=== PATIENT | female | born 1940 | race Caucasian/White ===

== ENCOUNTER 2018-12-01 05:40 | Day surgery (SDC) | payer MEDICARE, OTHER ==
[2018-11-28 16:37] LABS: BASOPHILS # (AUTO) 0.1 X10'3 (0-0.2); BASOPHILS % (AUTO) 0.8 % (0-1); EOSINOPHILS # (AUTO) 0.2 X10'3 (0-0.9); EOSINOPHILS % (AUTO) 2.5 % (0-6); LYMPHOCYTES # (AUTO) 2.5 X10'3 (1.1-4.8); LYMPHOCYTES % (AUTO) 34.2 % (21-51); MEAN CORPUSCULAR HEMOGLOBIN 29.6 PG (27.0-31.0); MEAN CORPUSCULAR HGB CONC 33.7 g/dL (33.0-36.5); MEAN CORPUSCULAR VOLUME 87.8 FL (78-98); MEAN PLATELET VOLUME 7.5 FL (7.4-10.4); MONOCYTES # (AUTO) 0.7 X10'3 (0-0.9); MONOCYTES % (AUTO) 8.9 % (2-12); NEUTROPHILS % (AUTO) 53.6 % (42-75); PRE OP HEMATOCRIT 38.6 % (35.0-45.0); PRE OP PLATELET COUNT 300 X10'3 (140-440); RED BLOOD COUNT 4.39 X10'6 (4.20-5.60); RED CELL DISTRIBUTION WIDTH 14.8 % (11.5-14.5)
[2018-11-28 16:51] LABS: ALBUMIN 3.4 G/DL (3.4-5.0); ALKALINE PHOSPHATASE 80 IU/L (46-116); BLOOD UREA NITROGEN 18 MG/DL (7-18); BUN/CREATININE RATIO 20.5 (6.6-38.0); CALCIUM 9.3 MG/DL (8.5-10.1); CHLORIDE 108 MMOL/L (99-107); CREATININE 0.88 MG/DL (0.40-0.90); PRE OP ALT 19 U/L (30-65); PRE OP ANION GAP 8 (8-16); PRE OP AST 16 U/L (10-37); PRE OP BILIRUB, TOTAL 0.2 MG/DL (0.0-1.0); PRE OP GLUCOSE 97 MG/DL (70-104); PRE OP POTASSIUM 3.7 MMOL/L (3.4-5.1); PRE OP SODIUM 143 MMOL/L (135-145); TOTAL CARBON DIOXIDE 27.4 MMOL/L (24-32); TOTAL PROTEIN 6.9 G/DL (6.4-8.2); eGFR 62 ML/MIN
[2018-12-01] VITALS (9 sets, daily range): BP systolic 99–113; BP diastolic 66–79
[~2018-12-01] VITALS: Ht 162.6 cm; Wt 65.8 kg
[~2018-12-01 05:40] MED LIST: OMEP20CA10 PO; SODI1TAB59 PO; VANCOMYCIN INJ 1000 MG in NORMAL SALINE 250ml IV.SOLN IV ONE; ZOLP10TA5 PO; ceFAZolin 1GM/D5W- ADD-VANTAGE 50 ML IV ONE; famotidine 20mg tablet PO ONE; ringers solution, lacted 1,000 ML IV SCH
[2018-12-01] MEDS ORDERED: LIDOcaine 1% (10mg/ml) 2ml vial ONE (05:57)
[2018-12-01] MEDS ORDERED: dexamethasone sod phosphate 10mg/ml inj ONE (06:50)
[2018-12-01] MEDS ORDERED: cloNIDine hcl/PF 100mcg/ml inj ONE (06:50)
[2018-12-01] MEDS ORDERED: sevoflurane 250ml liquid IH ONE (06:50)
[2018-12-01] MEDS ORDERED: midazolam 2 mg/2 ml injection ONE (06:51)
[2018-12-01] MEDS ORDERED: fentaNYL/PF 50MCG/1 ML 2ML syringe ONE (06:51)
[2018-12-01] MEDS ORDERED: LIDOcaine 1%/PF 5ML 10 MG/ML VIAL ONE (06:52)
[2018-12-01] MEDS ORDERED: ROPIVAcaine 0.5% (5mg/ml) 30ml vial ONE (06:52)
[2018-12-01] MEDS ORDERED: propofol inj 20 ML IV ONE (06:52)
[2018-12-01] MEDS ORDERED: rocuronium 10mg/ml inj IV ONE (07:49)
[2018-12-01] MEDS ORDERED: ondansetron/PF 4mg/2ml inj ONE (07:49)
[2018-12-01] MEDS ORDERED: BUPIVAcaine/PF 2.5mg/ml (0.25%) 10ml vial ONE (08:03)
[2018-12-01] MEDS ORDERED: morphine 4 MG/ML inj SYRINge IV PRN ×2 (08:10)
[2018-12-01] MEDS ORDERED: ringers solution, lacted 1,000 ML IV SCH (08:10)
[2018-12-01] MEDS ORDERED: proCHLORperazine 10 MG/2 ml inj IV PRN (08:10)
[2018-12-01] MEDS ORDERED: ondansetron/PF 4mg/2ml inj IV PRN (08:10)
[2018-12-01] MEDS ORDERED: meperidine/PF 25mg/ml syringe IV PRN ×3 (08:10)
--- NOTE | 2018-12-01 09:36 | NUR ---
Received from OR via , accompanied by Anesthesiologist DR OLIVEROS and report given by Anesthesiolgist. AWAKENS TO VOICE. VITALS STABLE. DRESSING DI. MERLIN PAIN. RUE IN IMMOBILIZER. RT HAND WARM AND PINK.
--- NOTE | 2018-12-01 09:54 | NUR ---
PT ARRIVED AND ASSESSED AT 0936 NOT 0636.
--- NOTE | 2018-12-01 11:06 | NUR ---
AWAKE AND ORIENTED. VITALS STABLE. DRESSING DI. MERLIN PAIN. NO MOVEMENT TO RUE. HAS SLING IN PLACE. HOME WITH FAMILY AT THIS TIME.
== END 2018-12-01 11:06 | disposition home or self-care (01) ==
LOC: PAS 05:40
PROVIDERS: ATTEND Orthopaedic Surgery
DX: S46.011A Strain of muscle(s) and tendon(s) of the rotator cuff of right shoulder, initial encounter (principal); S43.491A Other sprain of right shoulder joint, initial encounter; M24.011 Loose body in right shoulder; M19.011 Primary osteoarthritis, right shoulder; M75.41 Impingement syndrome of right shoulder; M75.21 Bicipital tendinitis, right shoulder; X58.XXXA Exposure to other specified factors, initial encounter; Y92.89 Other specified places as the place of occurrence of the external cause; Y99.8 Other external cause status; Y93.89 Activity, other specified; Z79.899 Other long term (current) drug therapy; Z98.890 Other specified postprocedural states
CPT/HCPCS: 0232T; 29819; 29823; 29824; 36415; 80053; 85025; A6253; A6449; C1713; J0690; J0735; J1100; J2001; J2250; J2405; J2704; J3010; J3370; J3490; J7120; A4565; A7000; J2795; J7030

== ENCOUNTER 2019-10-21 14:40 | Emergency (ER) | payer MEDICARE, OTHER ==
[~2019-10-21] VITALS: Ht 160 cm; Wt 63.6 kg
[~2019-10-21 14:40] MED LIST changes: -OMEP20CA10 PO; +OMEP20CA15 PO; -VANCOMYCIN INJ 1000 MG in NORMAL SALINE 250ml IV.SOLN IV ONE; -ceFAZolin 1GM/D5W- ADD-VANTAGE 50 ML IV ONE; -famotidine 20mg tablet PO ONE; -ringers solution, lacted 1,000 ML IV SCH
[2019-10-21 14:42] VITALS: BP 110/70
== END 2019-10-21 15:14 | disposition home or self-care (01) ==
LOC: ER 14:40
DX: R47.02 Dysphasia (principal); Z88.8 Allergy status to other drugs, medicaments and biological substances; Z88.5 Allergy status to narcotic agent; Z79.899 Other long term (current) drug therapy
CPT/HCPCS: 99283

== ENCOUNTER 2019-10-25 09:44 | Outpatient (CLI) | payer MEDICARE, OTHER | END 2019-10-25 23:59 | disposition home or self-care (01) | LOC: RAD 09:44 | PROVIDERS: ATTEND Otolaryngology | DX: K44.9 Diaphragmatic hernia without obstruction or gangrene (principal); R49.0 Dysphonia | CPT/HCPCS: 74220 ==

== ENCOUNTER 2019-11-30 09:26 | Outpatient (CLI) | payer MEDICARE, OTHER | END 2019-11-30 23:59 | disposition home or self-care (01) | LOC: RAD 09:26 | PROVIDERS: ATTEND Surgery | DX: K44.9 Diaphragmatic hernia without obstruction or gangrene (principal) | CPT/HCPCS: 74220 ==

== ENCOUNTER 2020-10-27 07:14 | Day surgery (SDC) | payer MEDICARE, OTHER ==
[2020-10-24 11:27] LABS: BASOPHILS # (AUTO) 0.1 X10'3 (0-0.2); BASOPHILS % (AUTO) 0.9 % (0-1); EOSINOPHILS # (AUTO) 0.2 X10'3 (0-0.9); EOSINOPHILS % (AUTO) 3.7 % (0-6); HEMATOCRIT 32.2 % (35.0-45.0); HEMOGLOBIN 10.3 g/dl (12.0-16.0); LYMPHOCYTES # (AUTO) 1.7 X10'3 (1.1-4.8); LYMPHOCYTES % (AUTO) 25.9 % (21-51); MEAN CORPUSCULAR HEMOGLOBIN 27.1 PG (27.0-31.0); MEAN CORPUSCULAR HGB CONC 32.1 g/dL (33.0-36.5); MEAN CORPUSCULAR VOLUME 84.3 FL (78-98); MEAN PLATELET VOLUME 7.7 FL (7.4-10.4); MONOCYTES # (AUTO) 0.7 X10'3 (0-0.9); NEUTROPHILS # (AUTO) 3.8 X10'3 (1.8-7.7); NEUTROPHILS % (AUTO) 58.5 % (42-75); PLATELET COUNT 303 X10'3 (140-440); RED BLOOD COUNT 3.82 X10'6 (4.20-5.60); RED CELL DISTRIBUTION WIDTH 14.6 % (11.5-14.5); WHITE BLOOD COUNT 6.5 X10'3 (4.5-11.0)
[2020-10-24 11:37] LABS: ALBUMIN 3.3 G/DL (3.4-5.0); ANION GAP 7 (8-16); BLOOD UREA NITROGEN 19 MG/DL (7-18); BUN/CREATININE RATIO 24.7 (6.6-38.0); CHLORIDE 107 MMOL/L (99-107); CREATININE 0.77 MG/DL (0.40-0.90); GLUCOSE 84 MG/DL (70-104); SODIUM 142 MMOL/L (135-145); TOTAL CARBON DIOXIDE 28.4 MMOL/L (24-32); eGFR 73 ML/MIN
[2020-10-24 11:42] LABS: PARTIAL THROMBOPLASTIN TIME 23 SECONDS (22-32)
[2020-10-27] VITALS (10 sets, daily range): BP systolic 107–127; BP diastolic 65–104
[~2020-10-27] VITALS: Ht 162.6 cm; Wt 61.3 kg
[2020-10-27] MEDS ORDERED: diphenhydrAMINE 25mg capsule PO PRN (07:40)
[2020-10-27] MEDS ORDERED: LORazepam 0.5 MG tablet PO PRN (07:40)
[2020-10-27] MEDS ORDERED: LIDOcaine/PRILOcaine 5gm cream TP ONE (07:40)
[2020-10-27] MEDS ORDERED: normal saline 1,000 ML IV SCH (07:40)
[2020-10-27] MEDS ORDERED: IPRA30SP (07:43)
[2020-10-27] MEDS ORDERED: CALC500T11 PO (07:44)
[2020-10-27] MEDS ORDERED: CETI10TA15 PO (07:44)
[2020-10-27] MEDS ORDERED: midazolam 2 mg/2 ml injection ONE (09:42)
[2020-10-27] MEDS ORDERED: verapamil 2.5 mg/ml inj IV ONE (09:42)
[2020-10-27] MEDS ORDERED: LIDOcaine 1% (10mg/ml)w/preservative injection 20ml MDV ONE (09:42)
[2020-10-27] MEDS ORDERED: fentaNYL/PF 50MCG/1 ML 2ML syringe ONE (09:42)
[2020-10-27] MEDS ORDERED: iohexol 350 MG/ML 50ML vial IV ONE (09:43)
[2020-10-27] MEDS ORDERED: heparin 1,000unit/ml 10ml vial 10 ML ONE (09:43)
[2020-10-27] MEDS ORDERED: iohexol 350MG/ML 100ml bottle IV ONE (09:43)
[2020-10-27] MEDS ORDERED: nitroGLYCERIN-Tridil 50MG/D5W 250 ML IV ONE (09:43)
[2020-10-27 10:32] LABS: ISTAT HGB ART 10.9 g/dl (12.0-16.0); ISTAT Hct ART 32 %PCV (35-48); ISTAT O2 SATURATION ARTERIAL 98 % (95-98); ISTAT SOURCE ART
[2020-10-27] MEDS ORDERED: HYDROcodone/acetaminophen 5mg/325mg tablet PO PRN (11:30)
[2020-10-27] MEDS ORDERED: HYDROcodone/acetaminophen 10/325mg tab PO PRN (11:30)
== END 2020-10-27 16:00 | disposition home or self-care (01) ==
LOC: SSTAY O 07:14
PROVIDERS: ATTEND Internal Medicine Cardiovascular Disease
DX: R06.02 Shortness of breath (principal); R53.83 Other fatigue; I35.2 Nonrheumatic aortic (valve) stenosis with insufficiency; I25.10 Atherosclerotic heart disease of native coronary artery without angina pectoris; I10 Essential (primary) hypertension; E78.49 Other hyperlipidemia; M19.90 Unspecified osteoarthritis, unspecified site; Z79.899 Other long term (current) drug therapy; Z90.710 Acquired absence of both cervix and uterus; Z88.8 Allergy status to other drugs, medicaments and biological substances; Z98.890 Other specified postprocedural states; Z96.651 Presence of right artificial knee joint; Z85.9 Personal history of malignant neoplasm, unspecified; Z83.3 Family history of diabetes mellitus; Z80.0 Family history of malignant neoplasm of digestive organs
CPT/HCPCS: 36415; 76937; 80048; 82803; 85014; 85025; 85610; 85730; 93005; 93460; 93567; 99152; 99153; C1769; C1894; J1644; J2001; J2250; J3010; J7030; Q0163; Q9967; A4620; A5120; C1751; J3490

== ENCOUNTER 2021-01-08 09:06 | Day surgery (SDC) | payer MEDICARE, OTHER ==
[2021-01-01 12:28] LABS: BASOPHILS # (AUTO) 0.1 X10'3 (0-0.2); EOSINOPHILS # (AUTO) 0.6 X10'3 (0-0.9); EOSINOPHILS % (AUTO) 8.9 % (0-6); LYMPHOCYTES # (AUTO) 1.9 X10'3 (1.1-4.8); LYMPHOCYTES % (AUTO) 29.4 % (21-51); MEAN CORPUSCULAR HEMOGLOBIN 26.1 PG (27.0-31.0); MEAN CORPUSCULAR HGB CONC 32.1 g/dL (33.0-36.5); MEAN CORPUSCULAR VOLUME 81.4 FL (78-98); MEAN PLATELET VOLUME 7.3 FL (7.4-10.4); MONOCYTES # (AUTO) 0.8 X10'3 (0-0.9); MONOCYTES % (AUTO) 12.6 % (2-12); NEUTROPHILS % (AUTO) 48.1 % (42-75); PRE OP HEMATOCRIT 32.7 % (35.0-45.0); PRE OP PLATELET COUNT 321 X10'3 (140-440); RED BLOOD COUNT 4.02 X10'6 (4.20-5.60); RED CELL DISTRIBUTION WIDTH 15.2 % (11.5-14.5)
[2021-01-01 12:31] LABS: PRE OP HEMOGLOBIN 10.5 g/dL (12.0-16.0)
[2021-01-01 12:51] LABS: ALBUMIN 3.5 G/DL (3.4-5.0); ALBUMIN/GLOBULIN RATIO 1.1 (1.1-1.5); ALKALINE PHOSPHATASE 76 IU/L (46-116); BLOOD UREA NITROGEN 20 MG/DL (7-18); BUN/CREATININE RATIO 27.4 (6.6-38.0); CALCIUM 9.1 MG/DL (8.5-10.1); CHLORIDE 107 MMOL/L (99-107); CREATININE 0.73 MG/DL (0.40-0.90); PRE OP ALT 21 U/L (30-65); PRE OP ANION GAP 8 (8-16); PRE OP AST 18 U/L (10-37); PRE OP BILIRUB, TOTAL 0.2 MG/DL (0.0-1.0); PRE OP GLUCOSE 86 MG/DL (70-104); PRE OP POTASSIUM 4.2 MMOL/L (3.4-5.1); PRE OP SODIUM 143 MMOL/L (135-145); TOTAL CARBON DIOXIDE 28.2 MMOL/L (24-32); TOTAL PROTEIN 6.7 G/DL (6.4-8.2); eGFR 77 ML/MIN
[2021-01-08] VITALS (15 sets, daily range): BP systolic 99–122; BP diastolic 44–74
[~2021-01-08] VITALS: Ht 162.6 cm; Wt 61.7 kg
[~2021-01-08 09:06] MED LIST changes: +CALC500T11 PO; -SODI1TAB59 PO; +VANCOMYCIN INJ 1000 MG in NORMAL SALINE 250ml IV.SOLN IV ONE; +cefazolin/dext.iso 2gm/100ml IV ONE; +famotidine 20mg tablet PO ONE; +ringers solution, lacted 1,000 ML IV SCH
[2021-01-08] MEDS ORDERED: hydrALAZINE 20mg/ml inj. IV PRN (10:30)
[2021-01-08] MEDS ORDERED: fentaNYL/PF 50MCG/1 ML 2ML syringe IV PRN ×2 (10:30)
[2021-01-08] MEDS ORDERED: ringers solution, lacted 1,000 ML IV SCH (10:30)
[2021-01-08] MEDS ORDERED: labetalol 20mg/4ml (5mg/ml) syringe IV PRN (10:30)
[2021-01-08] MEDS ORDERED: ondansetron/PF 4mg/2ml inj IV PRN (10:30)
[2021-01-08] MEDS ORDERED: BUPIVAcaine/PF 2.5 mg/ml (0.25%) 30ml vial ONE (11:19)
[2021-01-08] MEDS ORDERED: LIDOcaine 0.5% (5mg/ml) 50ml vial ONE (11:22)
[2021-01-08] MEDS ORDERED: MIDAZolam 1 MG/ML 5ML VIAL ONE (11:29)
[2021-01-08] MEDS ORDERED: methylPREDNISolone sod succ 125mg/2ml vial ONE (11:44)
[2021-01-08] MEDS ORDERED: fentaNYL/PF 50MCG/1 ML 2ML syringe ONE (12:02)
--- NOTE | 2021-01-08 12:14 | NUR ---
Received from OR via [facility] IN STABLE CONDITION, accompanied by Anesthesiologist DR. RDZ and FLAG CAR DRIVER report given by Anesthesiolgist. Addendum: 01/08/21 at 1238 by Meghan Quinteros RN Amended: Links added.
--- NOTE | 2021-01-08 14:34 | NUR ---
PATIENT DISCHARGED HOME IN STABLE CONDITION AFTER WRITTEN AND VERBAL DISCHARGE INSTRUCTIONS GIVEN. PATIENT GAVE A VERBAL UNDERSTANDING OF INSTRUCTIONS GIVEN. PATIENT LEFT FACILITY IN WHEELCHAIR WITH RN. Addendum: 01/08/21 at 1456 by Meghan Quinteros RN Amended: Links added.
== END 2021-01-08 14:34 | disposition home or self-care (01) ==
LOC: PAS 09:06
PROVIDERS: ATTEND Orthopaedic Surgery
DX: G56.02 Carpal tunnel syndrome, left upper limb (principal); G56.22 Lesion of ulnar nerve, left upper limb; K21.9 Gastro-esophageal reflux disease without esophagitis; I35.0 Nonrheumatic aortic (valve) stenosis; G89.4 Chronic pain syndrome; E78.5 Hyperlipidemia, unspecified; M19.011 Primary osteoarthritis, right shoulder; G62.9 Polyneuropathy, unspecified; Z86.14 Personal history of Methicillin resistant Staphylococcus aureus infection; Z85.41 Personal history of malignant neoplasm of cervix uteri; Z88.8 Allergy status to other drugs, medicaments and biological substances; Z88.5 Allergy status to narcotic agent; Z79.899 Other long term (current) drug therapy; Z98.890 Other specified postprocedural states; Z86.73 Personal history of transient ischemic attack (TIA), and cerebral infarction without residual deficits; Z96.653 Presence of artificial knee joint, bilateral; Z80.9 Family history of malignant neoplasm, unspecified
CPT/HCPCS: 36415; 64719; 64721; 80053; 82948; 85025; A6222; J2001; J2250; J2930; J3010; J3370; J3490; A4215; A4618; A6449; A6455; A7000; J7120

== ENCOUNTER 2023-02-21 07:35 | Day surgery (SDC) | payer MEDICARE, OTHER ==
[2023-02-18 15:33] LABS: BASOPHILS # (AUTO) 0.1 X10'3 (0-0.2); BASOPHILS % (AUTO) 0.8 % (0-1); EOSINOPHILS # (AUTO) 0.2 X10'3 (0-0.9); EOSINOPHILS % (AUTO) 2.6 % (0-6); LYMPHOCYTES # (AUTO) 1.6 X10'3 (1.1-4.8); LYMPHOCYTES % (AUTO) 21.1 % (21-51); MEAN CORPUSCULAR HEMOGLOBIN 22.3 PG (27.0-31.0); MEAN CORPUSCULAR HGB CONC 30.5 g/dL (33.0-36.5); MEAN PLATELET VOLUME 7.2 FL (7.4-10.4); MONOCYTES # (AUTO) 0.8 X10'3 (0-0.9); MONOCYTES % (AUTO) 10.8 % (2-12); NEUTROPHILS # (AUTO) 4.9 X10'3 (1.8-7.7); NEUTROPHILS % (AUTO) 64.7 % (42-75); PRE OP HEMATOCRIT 27.6 % (35.0-45.0); PRE OP PLATELET COUNT 344 X10'3 (140-440); RED BLOOD COUNT 3.78 X10'6 (4.20-5.60); RED CELL DISTRIBUTION WIDTH 17.7 % (11.5-14.5)
[2023-02-18 15:34] LABS: PRE OP HEMOGLOBIN 8.4 g/dL (12.0-16.0)
[2023-02-18 15:43] LABS: ALBUMIN 3.6 G/DL (3.4-5.0); ALBUMIN/GLOBULIN RATIO 1.1 (1.1-1.5); ALKALINE PHOSPHATASE 91 IU/L (46-116); BLOOD UREA NITROGEN 19 MG/DL (7-18); BUN/CREATININE RATIO 21.3 (10.0-20.0); CALCIUM 8.9 MG/DL (8.5-10.1); CHLORIDE 106 MMOL/L (99-107); CREATININE 0.89 MG/DL (0.40-0.90); PRE OP ALT 14 U/L (30-65); PRE OP ANION GAP 10 (8-16); PRE OP AST 16 U/L (10-37); PRE OP BILIRUB, TOTAL 0.2 MG/DL (0.0-1.0); PRE OP GLUCOSE 101 MG/DL (70-104); PRE OP POTASSIUM 3.8 MMOL/L (3.4-5.1); PRE OP SODIUM 140 MMOL/L (135-145); TOTAL CARBON DIOXIDE 24.1 MMOL/L (24-32); TOTAL PROTEIN 6.9 G/DL (6.4-8.2); eGFR 61 ML/MIN
[~2023-02-21] VITALS: Ht 162.6 cm; Wt 60.4 kg
[2023-02-21] VITALS (8 sets, daily range): BP systolic 111–122; BP diastolic 61–97
[~2023-02-21 07:35] MED LIST changes: +ACET-2119 PO; +IBUP1TAB11 PO; +IPRA30SP NS; +TUMERIC PO; -VANCOMYCIN INJ 1000 MG in NORMAL SALINE 250ml IV.SOLN IV ONE; +[UNRECOGNIZED DRUG - CODE] PO; +[UNRECOGNIZED DRUG - OTHER] PO; +cefazolin 2gm/D5W 100mL 100 ML IV ONE; -cefazolin/dext.iso 2gm/100ml IV ONE
[2023-02-21] MEDS ORDERED: BUPIVAcaine/PF 2.5mg/ml (0.25%) 10ml vial ONE (10:25)
[2023-02-21] MEDS ORDERED: midazolam 1 mg/ML 2ml injection ONE (10:43)
[2023-02-21] MEDS ORDERED: fentaNYL/PF 50MCG/1 ML 2ML syringe ONE (10:43)
--- NOTE | 2023-02-21 11:19 | NUR ---
Received from OR via [facility], accompanied by Anesthesiologist DR VALENCIA and report given by Anesthesiologist. PT IS AWAKE AND ANSWERING QUESTIONS APPROPRIATELY. PT PLACED ON BEDSIDE MONITOR. VSS. PT IS RECEIVING RA AND TOLERATING WELL WITH O2 SAT > 95%. PT HAS 20G PIV TO LEFT LOW FA WITH LR INFUSING ORDERED. PT HAS DRSG TO RT HAND THAT IS CDI. ICE PACK PLACED. PT DENIES PAIN AT THIS TIME. WILL CONTINUE TO ASSESSES.
--- NOTE | 2023-02-21 12:33 | NUR ---
PT HAS MET D/C CRITERIA. IV D/C'D. VSS. DRESSING C/D/I. ICE INTACT. PT STILL HAS TINGLING TO RIGHT HAND WHICH IS TO BE EXPECTED AND MD AWARE. I HAVE REVIEWED D/C INSTRUCTIONS WITH PATIENT AND SHE HAS VERBALIZED UNDERSTANDING OF INSTRUCTIONS. PATIENT D/C HOME WITH ALL BELONGINGS
== END 2023-02-21 12:29 | disposition home or self-care (01) ==
LOC: PAS 07:35
PROVIDERS: ATTEND Orthopaedic Surgery Hand Surgery
DX: G56.01 Carpal tunnel syndrome, right upper limb (principal); I35.0 Nonrheumatic aortic (valve) stenosis; D64.9 Anemia, unspecified; K21.9 Gastro-esophageal reflux disease without esophagitis; E78.5 Hyperlipidemia, unspecified; G89.4 Chronic pain syndrome; G62.9 Polyneuropathy, unspecified; M19.011 Primary osteoarthritis, right shoulder; Z85.41 Personal history of malignant neoplasm of cervix uteri; Z85.42 Personal history of malignant neoplasm of other parts of uterus; Z98.890 Other specified postprocedural states; Z96.611 Presence of right artificial shoulder joint; Z88.8 Allergy status to other drugs, medicaments and biological substances; Z88.5 Allergy status to narcotic agent; Z96.653 Presence of artificial knee joint, bilateral
CPT/HCPCS: 36415; 64721; 80053; 82948; 85025; 93005; J0690; J2250; J3010; J3490; J7030; J7120; Z7506; Z7512; A4215; A6449

== ENCOUNTER 2023-04-15 09:31 | Outpatient (CLI) | payer MEDICARE, OTHER ==
[~2023-04-15 09:31] MED LIST changes: -cefazolin 2gm/D5W 100mL 100 ML IV ONE; -famotidine 20mg tablet PO ONE; -ringers solution, lacted 1,000 ML IV SCH
[2023-04-15 10:09] LABS: BASOPHILS # (AUTO) 0.1 X10'3 (0-0.2); BASOPHILS % (AUTO) 0.8 % (0-1); EOSINOPHILS # (AUTO) 0.3 X10'3 (0-0.9); HEMATOCRIT 35.6 % (35.0-45.0); HEMOGLOBIN 11.4 g/dl (12.0-16.0); LYMPHOCYTES # (AUTO) 1.7 X10'3 (1.1-4.8); LYMPHOCYTES % (AUTO) 26.4 % (21-51); MEAN CORPUSCULAR HEMOGLOBIN 26.6 PG (27.0-31.0); MEAN CORPUSCULAR VOLUME 83.1 FL (78-98); MEAN PLATELET VOLUME 7.3 FL (7.4-10.4); MONOCYTES # (AUTO) 0.6 X10'3 (0-0.9); MONOCYTES % (AUTO) 9.4 % (2-12); NEUTROPHILS # (AUTO) 3.9 X10'3 (1.8-7.7); NEUTROPHILS % (AUTO) 59.4 % (42-75); PLATELET COUNT 284 X10'3 (140-440); RED BLOOD COUNT 4.28 X10'6 (4.20-5.60); RED CELL DISTRIBUTION WIDTH 25.7 % (11.5-14.5); WHITE BLOOD COUNT 6.6 X10'3 (4.5-11.0)
[2023-04-15 10:22] LABS: APTT 24 SECONDS (22-32); INR 0.9 INR; PROTHROMBIN TIME 10.2 SECONDS (9.0-12.0)
[2023-04-15 10:24] LABS: ALANINE AMINOTRANSFERASE 16 U/L (12-78); ALBUMIN 3.8 G/DL (3.4-5.0); ALBUMIN/GLOBULIN RATIO 1.3 (1.1-1.5); ALKALINE PHOSPHATASE 62 IU/L (46-116); ANION GAP 9 (8-16); ASPARTATE AMINO TRANSFERASE 17 U/L (10-37); BILIRUBIN,TOTAL 0.4 MG/DL (0.1-1.0); BLOOD UREA NITROGEN 19 MG/DL (7-18); BUN/CREATININE RATIO 22.1 (10.0-20.0); CALCIUM 9.2 MG/DL (8.5-10.1); CHLORIDE 106 MMOL/L (99-107); CREATININE 0.86 MG/DL (0.40-0.90); GLUCOSE 99 MG/DL (70-104); POTASSIUM 4.2 MMOL/L (3.5-5.1); SODIUM 141 MMOL/L (135-145); TOTAL CARBON DIOXIDE 25.7 MMOL/L (24-32); TOTAL PROTEIN 6.8 G/DL (6.4-8.2); eGFR 63 ML/MIN
[2023-04-15 10:32] LABS: PRO BRAIN NATRIURETIC PEPTIDE 202 PG/ML (0-450)
[2023-04-15] MEDS ORDERED: IODIXANOL 320 MG/ML INFUS..BTL 100ML IV ONE (10:50)
[2023-04-15 11:00] LABS: ANISOCYTOSIS 3+; PLATELET ESTIMATE NORMAL
== END 2023-04-15 23:59 | disposition home or self-care (01) ==
LOC: RAD 09:31
PROVIDERS: ATTEND Internal Medicine Cardiovascular Disease
DX: K57.30 Diverticulosis of large intestine without perforation or abscess without bleeding (principal); I35.0 Nonrheumatic aortic (valve) stenosis; R06.02 Shortness of breath; I65.23 Occlusion and stenosis of bilateral carotid arteries; I25.10 Atherosclerotic heart disease of native coronary artery without angina pectoris; K44.9 Diaphragmatic hernia without obstruction or gangrene; K22.89 Other specified disease of esophagus; Z96.611 Presence of right artificial shoulder joint
CPT/HCPCS: 36415; 71046; 71275; 74174; 75572; 80053; 83880; 85008; 85025; 85610; 85730; 93880; 94010; 94727; 94729; J3490; Q9967; 76377

== ENCOUNTER 2023-05-26 08:38 | Inpatient (IN) | payer MEDICARE, OTHER ==
[2023-05-23 11:05] LABS: BILIRUBIN,URINE NEGATIVE (Neg); CLARITY,URINE CLEAR (Clear); COLOR,URINE YELLOW (Yellow); GLUCOSE, URINE NEGATIVE (Neg); KETONES,URINE TRACE mg/dl (Neg); LEUKOCYTE ESTERASE ,URINE NEGATIVE (Neg); NITRITES, URINE NEGATIVE (Neg); OCCULT BLOOD,URINE SMALL (Neg); PROTEIN,URINE NEGATIVE (Neg); UROBILINOGEN,URINE 0.2 E.U/dL (0.2-1.0)
[2023-05-23 11:07] LABS: BASOPHILS # (AUTO) 0.1 X10'3 (0-0.2); BASOPHILS % (AUTO) 0.6 % (0-1); EOSINOPHILS # (AUTO) 0.3 X10'3 (0-0.9); EOSINOPHILS % (AUTO) 3.1 % (0-6); LYMPHOCYTES # (AUTO) 1.3 X10'3 (1.1-4.8); LYMPHOCYTES % (AUTO) 16.6 % (21-51); MEAN CORPUSCULAR HEMOGLOBIN 28.7 PG (27.0-31.0); MEAN CORPUSCULAR HGB CONC 32.2 g/dL (33.0-36.5); MEAN CORPUSCULAR VOLUME 89.1 FL (78-98); MEAN PLATELET VOLUME 7.8 FL (7.4-10.4); MONOCYTES # (AUTO) 0.5 X10'3 (0-0.9); MONOCYTES % (AUTO) 6.7 % (2-12); NEUTROPHILS # (AUTO) 5.9 X10'3 (1.8-7.7); PRE OP HEMATOCRIT 40.7 % (35.0-45.0); PRE OP HEMOGLOBIN 13.1 g/dL (12.0-16.0); PRE OP PLATELET COUNT 290 X10'3 (140-440); RED BLOOD COUNT 4.57 X10'6 (4.20-5.60); RED CELL DISTRIBUTION WIDTH 20.1 % (11.5-14.5)
[2023-05-23 11:09] LABS: PRE OP PROTIME 9.8 SECONDS (9.0-12.0)
[2023-05-23 11:16] LABS: UA COLLECTION TYPE CLN CATCH MIDSTREAM
[2023-05-23 11:18] LABS: MUCUS STRANDS MODERATE /LPF (Neg)
[2023-05-23 11:18] LABS: ALBUMIN 3.6 G/DL (3.4-5.0); ALBUMIN/GLOBULIN RATIO 0.9 (1.1-1.5); ALKALINE PHOSPHATASE 89 IU/L (46-116); BLOOD UREA NITROGEN 18 MG/DL (7-18); BUN/CREATININE RATIO 19.1 (10.0-20.0); CALCIUM 9.9 MG/DL (8.5-10.1); CHLORIDE 104 MMOL/L (99-107); CREATININE 0.94 MG/DL (0.40-0.90); PRE OP ALT 20 U/L (30-65); PRE OP ANION GAP 10 (8-16); PRE OP AST 22 U/L (10-37); PRE OP BILIRUB, TOTAL 0.2 MG/DL (0.0-1.0); PRE OP GLUCOSE 102 MG/DL (70-104); PRE OP POTASSIUM 3.7 MMOL/L (3.4-5.1); PRE OP SODIUM 140 MMOL/L (135-145); PRO BRAIN NATRIURETIC PEPTIDE 169 PG/ML (0-450); TOTAL CARBON DIOXIDE 25.8 MMOL/L (24-32); TOTAL PROTEIN 7.4 G/DL (6.4-8.2); eGFR 57 ML/MIN
[2023-05-23 11:19] LABS: BACTERIA,URINE FEW /HPF (Neg); SQUAMOUS EPITHELIAL CELL,UR FEW /LPF (FEW); WBC,URINE 0-4 /HPF (0-4)
[2023-05-23 11:22] LABS: PRE OP INR 0.9 INR
[2023-05-23 12:48] LABS: ANISOCYTOSIS 3+; ELLIPTOCYTES FEW; PLATELET ESTIMATE NORMAL
[2023-05-26] VITALS (29 sets, daily range): BP systolic 82–139; BP diastolic 42–119; PULSE 55–88; RESP 13–23; TEMP 97.8–98.3; O2SAT 92–100
[~2023-05-26] VITALS: Ht 162.6 cm; Wt 62.6 kg
[~2023-05-26 08:38] MED LIST changes: +aspirin 325mg tablet PO ONE; +cefazolin/dext.iso 2gm/100ml IVPB IV ONE; +ondansetron/PF 4mg/2ml inj IV PRN; +phenylephrine inj 50 MG in normal saline 250ml IV solN IV SCH; +protamine sulfate 10mg/ml inj. ONE; +ringers solution, lacted 1,000 ML IV SCH; +vancomycin/NS 1 GM ADD-VANTAGE 250 ML IV ONE
[2023-05-26] MEDS ORDERED: morphine 2 MG/ML inj. syringe IV PRN (08:55)
[2023-05-26] MEDS ORDERED: ringers solution, lacted 1,000 ML IV SCH (08:55)
[2023-05-26] MEDS ORDERED: hydrALAZINE 20mg/ml inj. IV PRN ×2 (08:55→12:20)
[2023-05-26] MEDS ORDERED: ondansetron/PF 4mg/2ml inj IV PRN ×2 (08:55→12:20)
[2023-05-26] MEDS ORDERED: morphine 4 MG/ML inj SYRINge IV PRN (08:55)
[2023-05-26] MEDS ORDERED: LIDOcaine 1% (10mg/ml) 2ml vial ONE (10:16)
[2023-05-26] MEDS ORDERED: LIDOcaine 1% 30ml preserv. free vial ONE (10:49)
[2023-05-26] MEDS ORDERED: heparin 1,000 UNITS/NS 500ml 1,500 ML ONE (10:49)
[2023-05-26] MEDS ORDERED: iohexol 350MG/ML 100ml bottle IV ONE (10:49)
[2023-05-26] MEDS ORDERED: dexamethasone sod phosphate 10mg/ml inj ONE (10:53)
[2023-05-26] MEDS ORDERED: sevoflurane 250ml liquid IH ONE (10:53)
[2023-05-26] MEDS ORDERED: fentaNYL/PF 50MCG/1 ML 2ML syringe ONE (11:01)
[2023-05-26] MEDS ORDERED: midazolam 1 mg/ML 2ml injection ONE (11:02)
[2023-05-26] MEDS ORDERED: LIDOcaine 2% (20mg/ml) 5ml vial ONE (11:07)
[2023-05-26] MEDS ORDERED: ondansetron/PF 4mg/2ml inj ONE (11:07)
[2023-05-26] MEDS ORDERED: propofol inj 20 ML IV ONE (11:07)
[2023-05-26] MEDS ORDERED: heparin 1,000unit/ml 10ml vial 10 ML ONE (11:08)
[2023-05-26] MEDS ORDERED: meperidine/PF 25mg/ml syringe IV PRN ×2 (11:30)
[2023-05-26] MEDS ORDERED: acetaminophen 1,000mg/100ml IV 100 ML IV ONE (11:34)
[2023-05-26] MEDS ORDERED: labetalol 20mg/4ml (5mg/ml) syringe IV ONE (12:02)
[2023-05-26] MEDS ORDERED: [UNRECOGNIZED DRUG - OTHER] PO PRN (12:10)
[2023-05-26] MEDS ORDERED: acetaminophen 325mg tablet PO PRN ×2 (12:10→12:20)
[2023-05-26] MEDS ORDERED: DIPHENHYDRAMINE PO PRN (12:10)
[2023-05-26] MEDS ORDERED: IBUPROFEN PO PRN (12:10)
[2023-05-26] MEDS ORDERED: magnesium 2GM in 50ml NS 50 ML IV PRN (12:20)
[2023-05-26] MEDS ORDERED: magnesium 4gm in 100ml NS 100 ML IV PRN (12:20)
[2023-05-26] MEDS ORDERED: proCHLORperazine 10 MG/2 ml inj IV PRN (12:20)
[2023-05-26] MEDS ORDERED: potassium Cl 40MEQ/270ML bag 250 ML IV PRN (12:20)
[2023-05-26] MEDS: normal saline 1000ml 1,000 ML IV SCH ×2 (12:20→22:20)
[2023-05-26] MEDS ORDERED: labetalol 20mg/4ml (5mg/ml) syringe IV PRN (12:20)
[2023-05-26] MEDS ORDERED: potassium Cl 40MEQ/1/2NS 520ml 520 ML IV PRN (12:20)
[2023-05-26] MEDS ORDERED: potassium Cl 20 mEq SR tablet PO PRN (12:20)
[2023-05-26] MEDS ORDERED: pantoprazole 40mg Tablet.DR PO PRN (12:20)
[2023-05-26] MEDS ORDERED: docusate sod 100mg capsule PO PRN (12:20)
[2023-05-26] MEDS ORDERED: diphenhydrAMINE 25mg capsule PO PRN (12:20)
[2023-05-26] MEDS ORDERED: potassium Cl 20mEq/100mL bag 100 ML IV PRN (12:20)
[2023-05-26] MEDS ORDERED: ALPRAZolam 0.25mg tablet PO PRN (12:20)
[2023-05-26] MEDS ORDERED: potassium CL 10mEq/100ml bag 100 ML IV PRN (12:20)
[2023-05-26] MEDS ORDERED: calcium carbonate 500mg chew tablet PO PRN (12:25)
[2023-05-26] MEDS: nitroPRUSSIDE (NIPRIDE) (200MCG/ML) 100ML Drip IV SCH (13:18)
--- NOTE | 2023-05-26 13:19 | NUR ---
Received from OR via bed, accompanied by Anesthesiologist shiela and report given by Anesthesiolgist and phlebotomy lab assistant RN. Pt sleepy, responding appropriately, KIRIT. Bilateral groin checked with parking enforcement specialist, ANDRADE Duque, dressings CDI no hematoma bilaterally. DP pulses palpable, feet cool to touch, cap refill <3. On 6L face mask. No c/o pain or discomfort. Addendum: 05/26/23 at 1325 by Franci Carlson RN Amended: Links added.
--- NOTE | 2023-05-26 15:00 | NUR ---
Removed left radial arterial line, no hematoma present, gauze and coban wrap applied.
--- NOTE | 2023-05-26 15:26 | NUR ---
Pt transferred on bed with side rails up x3. All belongings with patient and family notified of transfer. Report given to ANDRADE Malik. Bilateral groin checked at bedside with receiving nurse, no hematoma, dressings CDI. Bilateral DP pulse palpable.
[2023-05-26] MEDS: ceFAZolin 1GM/D5W- ADD-VANTAGE 50 ML IV SCH (16:00)
[2023-05-26] MEDS: sod chloride 0.9% 10ml flush syringe IV SCH (16:00)
--- NOTE | 2023-05-26 18:00 | NUR ---
Alert and Oriented to person place and time. + pulse in lower extremities, groin site Left and right clean dry dressing in place no hematoma and no bleeding, VS stable. Heart: Normal Rate and Rhythm.
[2023-05-26] MEDS ORDERED: VIT D3 PO SCH (20:00)
[2023-05-26] MEDS: ipratropium 0.03% 30ML nasal spray NS SCH (20:00)
[2023-05-26] MEDS ORDERED: CALCIUM PHOSPHATE TRIB PO SCH (20:00)
[2023-05-26] MEDS ORDERED: non-formulary drug ([Tumeric] 1 TAB) PO SCH (20:00)
[2023-05-26] MEDS ORDERED: zolpidem 5mg tablet PO SCH (21:00)
[2023-05-26] MEDS: vancomycin/NS 1 GM ADD-VANTAGE 250 ML IV SCH (21:20)
[2023-05-27] MEDS: ceFAZolin 1GM/D5W- ADD-VANTAGE 50 ML IV SCH ×2 (00:16→08:04)
[2023-05-27] MEDS: sod chloride 0.9% 10ml flush syringe IV SCH (00:17)
[2023-05-27] MEDS: nitroPRUSSIDE (NIPRIDE) (200MCG/ML) 100ML Drip IV SCH (00:18)
[2023-05-27 00:30] VITALS: BP 95/48; PULSE 87; RESP 16; O2SAT 91
[2023-05-27 02:00] VITALS: BP 96/50; PULSE 67; RESP 16; TEMP 98.2; O2SAT 96
[2023-05-27 04:30] VITALS: BP 93/47; PULSE 66; RESP 15; O2SAT 93
[2023-05-27] MEDS ORDERED: ringers solution, lacted 1,000 ML IV SCH (05:00)
[2023-05-27] MEDS ORDERED: famotidine 20mg tablet PO ONE (05:30)
[2023-05-27 06:00] VITALS: BP 87/42; PULSE 62; RESP 16; TEMP 97.8; O2SAT 96
[2023-05-27 06:38] LABS: BASOPHILS # (AUTO) 0.1 X10'3 (0-0.2); BASOPHILS % (AUTO) 0.3 % (0-1); EOSINOPHILS % (AUTO) 0.1 % (0-6); HEMATOCRIT 35.1 % (35.0-45.0); HEMOGLOBIN 11.2 g/dl (12.0-16.0); LYMPHOCYTES # (AUTO) 1.5 X10'3 (1.1-4.8); LYMPHOCYTES % (AUTO) 10.2 % (21-51); MEAN CORPUSCULAR HEMOGLOBIN 28.3 PG (27.0-31.0); MEAN CORPUSCULAR HGB CONC 31.9 g/dL (33.0-36.5); MEAN CORPUSCULAR VOLUME 88.8 FL (78-98); MEAN PLATELET VOLUME 7.3 FL (7.4-10.4); MONOCYTES # (AUTO) 1.4 X10'3 (0-0.9); MONOCYTES % (AUTO) 9.5 % (2-12); NEUTROPHILS # (AUTO) 11.9 X10'3 (1.8-7.7); NEUTROPHILS % (AUTO) 79.9 % (42-75); PLATELET COUNT 239 X10'3 (140-440); RED BLOOD COUNT 3.95 X10'6 (4.20-5.60); RED CELL DISTRIBUTION WIDTH 18.8 % (11.5-14.5); WHITE BLOOD COUNT 14.9 X10'3 (4.5-11.0)
--- NOTE | 2023-05-27 06:43 | NUR ---
Patient in room PCU 3012. I have received report from ANDRADE MORGAN, and had the opportunity to ask questions and assume patient care.
[2023-05-27 07:00] LABS: ANISOCYTOSIS 2+; ELLIPTOCYTES FEW; PLATELET ESTIMATE NORMAL
[2023-05-27 07:16] LABS: ALANINE AMINOTRANSFERASE 13 U/L (12-78); ALKALINE PHOSPHATASE 66 IU/L (46-116); ANION GAP 9 (8-16); ASPARTATE AMINO TRANSFERASE 24 U/L (10-37); BILIRUBIN,TOTAL 0.3 MG/DL (0.1-1.0); BLOOD UREA NITROGEN 14 MG/DL (7-18); BUN/CREATININE RATIO 15.7 (10.0-20.0); CALCIUM 8.6 MG/DL (8.5-10.1); CHLORIDE 107 MMOL/L (99-107); CREATININE 0.89 MG/DL (0.40-0.90); GLUCOSE 97 MG/DL (70-104); MAGNESIUM 1.8 MG/DL (1.5-2.4); POTASSIUM 3.9 MMOL/L (3.5-5.1); PRO BRAIN NATRIURETIC PEPTIDE 545 PG/ML (0-450); SODIUM 138 MMOL/L (135-145); TOTAL CARBON DIOXIDE 21.7 MMOL/L (24-32); eCRCL 44 ML/MIN; eGFR 61 ML/MIN
[2023-05-27] MEDS: ipratropium 0.03% 30ML nasal spray NS SCH (08:00)
[2023-05-27] MEDS ORDERED: aspirin 81mg tab.chew PO SCH (08:30)
[2023-05-27] MEDS: vancomycin/NS 1 GM ADD-VANTAGE 250 ML IV SCH (09:12)
[2023-05-27] MEDS ORDERED: ASPI81TA53 PO (09:20)
[2023-05-27 10:27] VITALS: RESP 16; O2SAT 96
[2023-05-27 11:00] VITALS: BP 85/42; PULSE 64; RESP 16; TEMP 97.6; O2SAT 97
--- NOTE | 2023-05-27 12:51 | NUR ---
PT STABLE FOR DISCHARGE PER MD. DISCHARGE AND FOLLOW UP INSTRUCTIONS REVIEWED AND APPROPRIATE PAPERWORK SIGNED. PIV REMOVED WITH TIP INTACT. TELE BOX REMOVED. BELONGINGS GATHERED AND RETURNED TO PT. PT WAS TRANSPORTED TO \PRIVATE VEHICLE BY HOSPITAL STAFF. PT WAS DISCHARGED TO HOME.
== END 2023-05-27 12:43 | disposition home or self-care (01) | DRG 266 ==
LOC: UNDOADMIN 08:38 → PAS IN 08:38 → EDSTATUS 10:30 → PCU 3S 15:34
PROVIDERS: ADMIT Internal Medicine Cardiovascular Disease; ATTEND Internal Medicine Cardiovascular Disease
PROC: 03HY32Z Insertion of Monitoring Device into Upper Artery, Percutaneous Approach (ICD-10-PCS; 2023-05-26)
PROC: B41G1ZZ Fluoroscopy of Left Lower Extremity Arteries using Low Osmolar Contrast (ICD-10-PCS; 2023-05-26)
PROC: B41F1ZZ Fluoroscopy of Right Lower Extremity Arteries using Low Osmolar Contrast (ICD-10-PCS; 2023-05-26)
PROC: 02RF38Z Replacement of Aortic Valve with Zooplastic Tissue, Percutaneous Approach (ICD-10-PCS; principal; 2023-05-26 10:53)
DX: I35.0 Nonrheumatic aortic (valve) stenosis (principal); Z00.6 Encounter for examination for normal comparison and control in clinical research program; I50.33 Acute on chronic diastolic (congestive) heart failure; E78.5 Hyperlipidemia, unspecified; I25.10 Atherosclerotic heart disease of native coronary artery without angina pectoris; Z85.42 Personal history of malignant neoplasm of other parts of uterus
CPT/HCPCS: 33361; 36415; 71045; 71046; 76937; 80053; 81001; 82948; 83735; 83880; 85008; 85025; 85347; 85610; 85730; 86885; 86900; 86901; 86920; 87081; 93005; 93308; A4618; A4620; A6258; A6449; C1756; C1760; C1769; C1894; G0378; J0131; J0690; J1100; J1644; J2250; J2370; J2405; J2704; J2720; J3010; J3370; J3490; J7030; J7040; J7050; J7120; Q9967

== ENCOUNTER → 2023-11-18 | Outpatient (CLI) | payer MEDICARE, OTHER ==
[~2023-11-18] VITALS: Ht 162.6 cm; Wt 64.0 kg
[2023-11-18] VITALS (7 sets, daily range): BP systolic 97–109; BP diastolic 55–71; PULSE 63–99; RESP 18; O2SAT 100
[~2023-11-18] MED LIST changes: +ASPI81TA53 PO; +aminophylline 250mg/10ml inj. IV PRN; -aspirin 325mg tablet PO ONE; -cefazolin/dext.iso 2gm/100ml IVPB IV ONE; +nitroGLYCERIN 0.4mg SUBLingual tab SL PRN; +normal saline 500ml IV soln 500 ML IV ONE; -ondansetron/PF 4mg/2ml inj IV PRN; -phenylephrine inj 50 MG in normal saline 250ml IV solN IV SCH; -protamine sulfate 10mg/ml inj. ONE; -ringers solution, lacted 1,000 ML IV SCH; -vancomycin/NS 1 GM ADD-VANTAGE 250 ML IV ONE
[2023-11-18] MEDS: regadenoson 0.4mg/5ml syringe IV ONE (11:00)
== END | disposition home or self-care (01) ==
LOC: RAD 09:23
PROVIDERS: ATTEND Internal Medicine Cardiovascular Disease
DX: I25.10 Atherosclerotic heart disease of native coronary artery without angina pectoris (principal); R06.02 Shortness of breath
CPT/HCPCS: 78452; A9500; J2785; J7040; 93017

== ENCOUNTER → 2024-05-24 | Outpatient (CLI) | payer MEDICARE, OTHER ==
[~2024-05-24] MED LIST changes: -aminophylline 250mg/10ml inj. IV PRN; -nitroGLYCERIN 0.4mg SUBLingual tab SL PRN; -normal saline 500ml IV soln 500 ML IV ONE
== END | disposition home or self-care (01) ==
LOC: TAVR 13:30
PROVIDERS: ATTEND Internal Medicine Cardiovascular Disease
DX: Z48.812 Encounter for surgical aftercare following surgery on the circulatory system (principal); Z95.2 Presence of prosthetic heart valve

== ENCOUNTER 2025-02-24 13:30 | Inpatient (IN) | payer MEDICARE, OTHER ==
[~2025-02-24] VITALS: Ht 165.1 cm; Wt 61.4 kg
--- NOTE | 2025-02-24 13:56 | ELECTROCARDIOGRAPH REPORT ---
[facility] Test Date: 2025-02-24 Test Time: 13:41:33 Pat Name: SAM TABARES Department: EMERGENCY ROOM Room: Gender: F Tipple Repairer: MELISSA : 1940 Requested By: CHRIS MALDONADO Order Number: [id number] Reading MD: Measurements Intervals [place] Rate: 115 P: 59 WI: 112 QRS: 29 QRSD: 79 T: 91 QT: 334 QTc: 462 Interpretive Statements Sinus tachycardia Anterior infarct, old Nonspecific repol abnormality, lateral leads Artifact in lead(s) I,III,aVR,aVL,aVF and baseline wander in lead(s) I,III,aVR,aVL,aVF,V1,V5 Please click the below link to view image of tracing.
--- NOTE | 2025-02-24 14:00 | Physician Documentation ---
History of Present Illness General Chief Complaint: Mechanical Fall Stated Complaint: FALL Time Seen by MD: 13:44 Primary Medical Doctor: Dr. Pierre History of Present Illness Initial Comments The patient is an 84-year-old female with a history of aortic stenosis status post TAVR who lives by herself. Her neighbor saw her at baseline about 3:00 a.m. in the afternoon yesterday. Today, he went to check on her and when there is no answer at her door he entered her house and found her on the floor. There were several areas of vomitus in different parts of the floor. He helped her to his car. She was able to walk only with a lot of support. When I interviewed her she was able to tell me her full name and she knew where she was. She was disoriented to the year. Medication Reconciliation Allergies: Coded Allergies: gabapentin (Verified Adverse Reaction, Mild, ITCHING, PRICKLY SENSATION, 02/18/23) hydrocodone (Verified Adverse Reaction, Unknown, MAUSEA, ITCH, 02/18/23) morphine (Verified Adverse Reaction, Unknown, THREW UP, 10/27/20) Scheduled Aspirin (Children's Aspirin), 81 MG PO Q24H@0830 Calcium Phosphate Trib/Vit D3 (Caltrate Gummy Bites), 500 TAB PO BID, (Reported) Ipratropium [place] Nasal [place]* (Atrovent Nasal [place]*), 2 SPRAYS NS BID, (Reported) Omeprazole (Omeprazole), 20 MG PO BID, (Reported) Zolpidem Tartrate* (Ambien*), 1 TAB PO HS, (Reported) [Tumeric], 1 TAB PO BID, (Reported) Scheduled PRN Acetaminophen (Tylenol), 1 TABLET PO HS PRN for SLEEP, (Reported) Calcium Carbonate (Tums), 1 TAB PO BID PRN for indigestion/dyspepsia, (Reported) Ibuprofen/Diphenhydramine (Advil Pm Caplet), 1 TAB PO HS PRN for sleep, (Reported) [Qunol Sleep], 1 TAB PO HS PRN for sleep, (Reported) Past Medical History Past Medical History: *GI/HEPATOBILIARY* Past Surgical History: no surgical history Alcohol Use: None Drug Use: none Lives with: Spouse Lives In: Home Review of Systems ROS Unable to obtain due to patient confusion. Physical Exam Physical Exam Vital Signs: Temperature: 97.8, Heart Rate: 115, Respiratory Rate: 32, BP: 115/79, Pulse Oximetry: 97, Weight: 61.360 Oxygen Flow Rate: 0 Physical Exam Physical Exam Vitals and nursing note reviewed. Constitutional: General: Patient is awake, alert, oriented x 2 in no acute distress and well appearing. Speech is clear and lucid. Appearance: Normal appearance. Patient is not ill-appearing, toxic-appearing or diaphoretic. HENT: Head: Normocephalic and atraumatic. Mouth/Throat: Mouth: Mucous membranes are moist. Pharynx: Oropharynx is clear. Eyes: General: No scleral icterus. Extraocular Movements: Extraocular movements intact. Pupils: Pupils are equal, round, and reactive to light. Cardiovascular: Rate and Rhythm: Normal rate and regular rhythm. Heart sounds: No murmur heard. Pulmonary: Effort: No respiratory distress. Breath sounds: No wheezing, rhonchi or rales. Abdominal: General: There is no distension. Palpations: There is no fluid wave, hepatomegaly or mass. Tenderness: There is no abdominal tenderness. There is no guarding. Musculoskeletal: General: No swelling or deformity. There are multiple old bruises and various parts of her body including her back and right shoulder. Skin: Coloration: Skin is not jaundiced. Findings: No erythema or rash. Neurological: Mental Status: Patient is alert. Progress Results/Orders Results/Orders Orders - CHRIS MALDONADO MD Urinalysis, Cult If Indicated (02/24/25 13:52) Drug Screen, Urine (02/24/25 13:52) Straight Cath For Urine Sample (02/24/25 13:52) Ct Head (02/24/25 13:52) Ct Cervical Spine (02/24/25 13:52) Piperacillin/Tazo 3.375gm/50ml (Zosyn 3. (02/24/25 20:00) Chest,Single View (02/24/25 15:17) Lactic,2hr (02/24/25 16:06) Page Hospitalist (02/24/25 16:24) Completed Orders - CHRIS MALDONADO MD CK (02/24/25 13:52) Cbc/Diff (02/24/25 13:52) CMP (02/24/25 13:52) Ethanol (02/24/25 13:52) MG (02/24/25 13:52) LA (02/24/25 13:52) Pt Inr (02/24/25 13:52) TSH (02/24/25 13:52) Ammonia (02/24/25 13:52) Hs Troponin I W Calculations (02/24/25 13:52) Electrocardiogram (02/24/25 ) Normal Saline 1000ml (Sodium Chloride 10 (02/24/25 13:55) Ct Head (02/24/25 13:52) Ct Cervical Spine (02/24/25 13:52) Normal Saline 1000ml (Sodium Chloride 10 (02/24/25 15:15) Chest,Single View (02/24/25 15:17) Medications Received in ER Medications (Trade) Dose Ordered Sig/Rob Route PRN Reason Start Time Stop Time Status Last Admin Dose Admin Sodium Chloride 1,000 ml @ 1,000 mls/hr ONCE ONCE IV 02/24/25 13:55 02/24/25 14:54 DC 02/24/25 14:26 1,000 MLS/HR Sodium Chloride 1,000 ml @ 1,000 mls/hr ONCE ONCE IV 02/24/25 15:15 02/24/25 16:14 DC 02/24/25 16:14 1,000 MLS/HR Vital Signs 02/24/25 02/24/25 02/24/25 13:39 14:25 15:32 Temp 97.8 97.8 Pulse 115 91 Resp 32 26 18 B/P (MAP) 115/79 148/85 (106) Pulse Ox 97 97 O2 Flow Rate 0 0 Laboratory Tests Test 02/24/25 14:25 02/24/25 16:17 White Blood Count 20.2 H Red Blood Count 5.86 H Hemoglobin 17.9 H Hematocrit 53.7 H Mean Corpuscular Volume 91.6 Mean Corpuscular Hemoglobin 30.5 Mean Corpuscular Hemoglobin Concent 33.3 Red Cell Distribution Width 14.5 Platelet Count 248 Mean Platelet Volume 8.7 Neutrophils (%) (Auto) 85.7 H Lymphocytes (%) (Auto) 5.2 L Monocytes (%) (Auto) 8.9 Eosinophils (%) (Auto) 0.1 Basophils (%) (Auto) 0.1 Neutrophils # (Auto) 17.4 H Lymphocytes # (Auto) 1.0 L Monocytes # (Auto) 1.8 H Eosinophils # (Auto) 0.0 Basophils # (Auto) 0.0 CBC Comment Prothrombin Time 10.8 INR International Normalized Ratio 1.1 Coagulation Comments Sodium Level 151 H Potassium Level 4.3 Chloride Level 107 Carbon Dioxide Level 25.5 Anion Gap 19 H Blood Urea Nitrogen 99 H Creatinine 2.47 H Estimated GFR/1.73 m2 19 BUN/Creatinine Ratio 40.1 H Glucose Level 141 H Lactic Acid Level 4.1 *H Calcium Level 9.8 Magnesium Level 3.3 H Total Bilirubin 1.2 H Aspartate Amino Transf (AST/SGOT) 45 H Alanine Aminotransferase (ALT/SGPT) 55 Alkaline Phosphatase 98 Ammonia < 10 L Total Creatine Kinase 330 H Troponin I High Sensitivity 135 *H Total Protein 7.8 Albumin 3.8 Globulin 4.0 Albumin/Globulin Ratio 1.0 L Thyroid Stimulating Hormone (TSH) 0.89 Chemistry Comments Ethyl Alcohol Level < 10 Urine Comment Drug Screen Comment Medical Decision Making Findings This 84-year-old lady who lives alone was found on the floor of her house by a neighbor with several areas of vomitus on the floor. She has a white count of roughly 20,000, lactate of over 4. CT scan of the head was unremarkable. Curiously, there are several foci of gas in the right internal jugular vein, chest x-rays reported negative and urinalysis is pending. I have started her on Zosyn and hydration. She will require admission. Departure Disposition: ADMITTED INPATIENT Admission Level of Care: PCU with Tele Impression: Primary Impression: Sepsis Additional Impression: Elevated troponin Condition: Fair Referrals: NO PRIMARY CARE PROVIDER (PCP) Signature Scribe Signature: . Attestation: CHRIS VARGAS MD Feb 24, 2025 14:00
[2025-02-24] MEDS: normal saline 1000ml 1,000 ML IV ONE ×2 (14:26→16:14)
--- NOTE | 2025-02-24 14:29 | RADIOLOGY REPORT ---
CT CT HEAD INDICATION: Syncope EXAM DATE: 02/24/2025 02:04 PM COMPARISON: None RADIATION DOSE: CTDIvol: 43 mGy, DLP: 801 mGy*cm PROCEDURE: CT scans of the head were obtained from the vertex to the skull base. Sagittal and coronal reconstructions were provided. All CT scans at this medical facility are performed using dose modulation techniques as appropriate t o a performed exam including the following: Automated exposure control was utilized; adjustment of th e MA and/or KV according to patient size; and use of iterative reconstruction technique. FINDINGS: Bilateral basal ganglia mineralization. There is sulcal and ventricular prominence. The br ain otherwise shows normal morphology and jenkins-white matter differentiation, without intracranial hem orrhage, extra-axial fluid collection, mass effect or acute large vessel infarct. The ventricles are normal in size. The basal cisterns are patent. The skull and visible facial bones are intact. The par anasal sinuses, mastoid air cells and middle ear cavities are well-aerated. The soft tissues of the s calp are unremarkable. IMPRESSION: No acute intracranial abnormality.
[2025-02-24 14:36] LABS: BASOPHILS % (AUTO) 0.1 % (0-1); EOSINOPHILS % (AUTO) 0.1 % (0-6); HEMATOCRIT 53.7 % (35.0-45.0); HEMOGLOBIN 17.9 g/dl (12.0-16.0); LYMPHOCYTES % (AUTO) 5.2 % (21-51); MEAN CORPUSCULAR HEMOGLOBIN 30.5 PG (27.0-31.0); MEAN CORPUSCULAR HGB CONC 33.3 g/dL (33.0-36.5); MEAN CORPUSCULAR VOLUME 91.6 FL (78-98); MEAN PLATELET VOLUME 8.7 FL (7.4-10.4); MONOCYTES # (AUTO) 1.8 X10'3 (0-0.9); MONOCYTES % (AUTO) 8.9 % (2-12); NEUTROPHILS # (AUTO) 17.4 X10'3 (1.8-7.7); NEUTROPHILS % (AUTO) 85.7 % (42-75); PLATELET COUNT 248 X10'3 (140-440); RED BLOOD COUNT 5.86 X10'6 (4.20-5.60); RED CELL DISTRIBUTION WIDTH 14.5 % (11.5-14.5); WHITE BLOOD COUNT 20.2 X10'3 (4.5-11.0)
--- NOTE | 2025-02-24 14:40 | RADIOLOGY REPORT ---
CT CT CERVICAL SPINE INDICATION: Syncope EXAM DATE: 02/24/2025 02:06 PM COMPARISON: None RADIATION DOSE: CTDIvol: 15 mGy, DLP: 289 mGy*cm PROCEDURE: Utilizing the CT scanner, contiguous axial images were obtained through the cervical spine . Coronal and sagittal reformatted images were then generated. All CT scans at this medical facility are performed using dose modulation techniques as appropriate t o a performed exam including the following: Automated exposure control was utilized; adjustment of th e MA and/or KV according to patient size; and use of iterative reconstruction technique. FINDINGS: Alignment at the craniocervical junction is maintained. The cortical margins are intact. Th e vertebral body heights and cervical alignment are normal. The facet joints show normal alignment wi thout fracture. The intervertebral disc spaces are narrow and degenerative. The paraspinal soft tissu es appear normal. Multiple foci of gas in the left internal jugular vein and its more distal tributar ies are visualized. On axial images: There is multi level posterior disc osteophyte complex with worst at level C5-C6 wit h moderate central canal narrowing and severe bilateral neuroforaminal narrowing. Facet and uncinate spondylosis is visualized. IMPRESSION: Multiple foci of gas in the left internal jugular vein and its more distal tributaries are visualized is nonspecific and incompletely evaluated with contrast. No cervical spine fracture or subluxation. Multi level degenerative changes of the cervical spine worst at level C5-C6 with moderate central can al narrowing and severe bilateral neuroforaminal narrowing.
[2025-02-24 14:44] LABS: INR 1.1 INR; PROTHROMBIN TIME 10.8 SECONDS (9.0-12.0)
[2025-02-24 14:46] LABS: AMMONIA < 10 UMOL/L (11-32)
[2025-02-24 14:48] LABS: GLUCOSE 141 MG/DL (70-104); POTASSIUM 4.3 MMOL/L (3.5-5.1); SODIUM 151 MMOL/L (135-145)
[2025-02-24 14:49] LABS: ALANINE AMINOTRANSFERASE 55 U/L (12-78); ALBUMIN 3.8 G/DL (3.4-5.0); ALKALINE PHOSPHATASE 98 IU/L (46-116); ANION GAP 19 (8-16); ASPARTATE AMINO TRANSFERASE 45 U/L (10-37); BILIRUBIN,TOTAL 1.2 MG/DL (0.1-1.0); BLOOD UREA NITROGEN 99 MG/DL (7-18); BUN/CREATININE RATIO 40.1 (10.0-20.0); CALCIUM 9.8 MG/DL (8.5-10.1); CHLORIDE 107 MMOL/L (99-107); CREATININE 2.47 MG/DL (0.40-0.90); TOTAL CARBON DIOXIDE 25.5 MMOL/L (24-32); TOTAL PROTEIN 7.8 G/DL (6.4-8.2); eCRCL 16 ML/MIN; eGFR 19 ML/MIN
[2025-02-24 14:57] LABS: CREATINE KINASE 330 U/L (26-192); MAGNESIUM 3.3 MG/DL (1.5-2.4); THYROID STIMULATING HORMONE 0.89 ulU/ml (0.34-4.50)
[2025-02-24 15:06] LABS: ETHANOL < 10 MG/DL (<10); LACTIC SEPSIS 4.1 MMOL/L (0.4-2.0)
--- NOTE | 2025-02-24 15:35 | RADIOLOGY REPORT ---
CHEST RADIOGRAPH Indication: Sepsis Technique: Single frontal view of the chest was obtained Comparison: DI CHEST,SINGLE VIEW on DOS: 05/27/23 FINDINGS: Lines and Tubes: None Lungs: No focal consolidation. Mild hyperinflation of the lungs. Pleura: No effusion. No pneumothorax. Cardiomediastinal contours: Unremarkable Bones: No acute osseous abnormality. Right-sided reverse shoulder arthroplasty. IMPRESSION: No acute cardiopulmonary disease.
[2025-02-24 16:47] LABS: BILIRUBIN,URINE NEGATIVE (Neg); CLARITY,URINE SLIGHTLY CLOUDY (Clear); COLOR,URINE YELLOW (Yellow); GLUCOSE, URINE NEGATIVE (Neg); KETONES,URINE NEGATIVE (Neg); LEUKOCYTE ESTERASE ,URINE NEGATIVE (Neg); NITRITES, URINE NEGATIVE (Neg); OCCULT BLOOD,URINE SMALL (Neg); PH,URINE 5.5 (4.8-8.0); PROTEIN,URINE 30 mg/dl (Neg); UROBILINOGEN,URINE 0.2 E.U/dL (0.2-1.0)
[2025-02-24 16:51] LABS: URINE AMPHETAMINE SCREEN NEGATIVE (Neg); URINE BARBITUATE SCREEN NEGATIVE (Neg); URINE BENZODIAZEPINES SCREEN NEGATIVE (Neg); URINE COCAINE SCREEN NEGATIVE (Neg); URINE METHADONE SCREEN NEGATIVE (Neg)
[2025-02-24 16:52] LABS: URINE CANNABINOID SCREEN NEGATIVE (Neg); URINE OPIATE SCREEN NEGATIVE (Neg); URINE PHENCYCLIDINE SCREEN NEGATIVE (Neg)
[2025-02-24 17:01] LABS: UA COLLECTION TYPE CLN CATCH MIDSTREAM
[2025-02-24 17:03] LABS: BACTERIA,URINE 4+ /HPF (Neg); SQUAMOUS EPITHELIAL CELL,UR FEW /LPF (FEW)
[2025-02-24] MEDS ORDERED: potassium Cl 20 mEq SR tablet PO PRN ×2 (18:10)
[2025-02-24] MEDS ORDERED: magnesium Cl slow-release 64mg tablet PO PRN (18:10)
[2025-02-24] MEDS ORDERED: normal saline 1000ml 1,000 ML IV SCH (18:10)
[2025-02-24] MEDS ORDERED: HYDROcodone/acetaminophen 10/325mg tab PO PRN (18:10)
[2025-02-24] MEDS ORDERED: magnesium sulf-water 4G/100mL 100 ML IV PRN (18:10)
[2025-02-24] MEDS ORDERED: mag hydrox/Alum hydrox/simeth 30ml oral suspension PO PRN (18:10)
[2025-02-24] MEDS ORDERED: magnesium sulf-water 2g/50mL 50 ML IV PRN (18:10)
[2025-02-24] MEDS ORDERED: HYDROcodone/acetaminophen 5mg/325mg tablet PO PRN (18:10)
[2025-02-24] MEDS ORDERED: morphine 2 MG/ML inj. syringe IV PRN ×2 (18:10)
[2025-02-24] MEDS ORDERED: potassium Cl 40MEQ/1/2NS 520ml 520 ML IV PRN (18:10)
[2025-02-24] MEDS ORDERED: ondansetron/PF 4mg/2ml inj IV PRN (18:10)
[2025-02-24] MEDS ORDERED: acetaminophen 325mg tablet PO PRN ×2 (18:10)
--- NOTE | 2025-02-24 18:26 | HISTORY AND PHYSICAL-Residence ---
History & Physical Providers to CC Resident Creating Document: NAYANA MORGAN, RES ~ History of Present Illness Primary Medical Doctor: Elise, Floor Surfacer: Dr. Pierre Reason for Admit\Complaint: Failure to thrive History of Present Illness The patient is an 84-year-old female with past medical history of aortic stenosis, GERD, was brought to the ED after she was found down by her neighbor in her house. Patient is confused, hard of hearing and has advanced dementia. Unable to give any history. History is obtained from a lady named Helena who is her POA. She is the daughter of the patient's petroleum terminal plant operator partner. As reported by her, the patient lives at home by herself, unable to take care of herself. She usually has a routine where she goes to [employer] for breakfast and lunch. Her car broke down 10 days ago and she was unable to get around. Since there was a disturbance in her routine, she was unable to eat anything even though there was food at home. Helena last saw her on Tuesday. Last known normal by her neighbor was on Tuesday. This afternoon, patient's neighbor went in her home to check on her and she was found down with evidence of multiple vomiting puddles on the floor. She was able to get up and get to the ambulance with a lot of help. Allergies: Coded Allergies: gabapentin (Verified Adverse Reaction, Mild, ITCHING, PRICKLY SENSATION, 02/18/23) hydrocodone (Verified Adverse Reaction, Unknown, MAUSEA, ITCH, 02/18/23) morphine (Verified Adverse Reaction, Unknown, THREW UP, 10/27/20) Home Medications Home Medications Active Children's Aspirin (Aspirin) 81 Mg Tab.chew 81 Mg PO Q24H@0830 Reported [Qunol Sleep] 1 Tab PO HS PRN Caltrate Gummy Bites (Calcium Phosphate Trib/Vit D3) 1 Each Tab.chew 500 Tab PO BID [Tumeric] 1 Tab PO BID Advil Pm Caplet (Ibuprofen/Diphenhydramine) 1 Each Tablet 1 Tab PO HS PRN Tylenol (Acetaminophen) 325 Mg Tablet 1 Tablet PO HS PRN Atrovent Nasal [place]* (Ipratropium [place]) 30 Ml [place] 2 Sprays NS BID Tums (Calcium Carbonate) 500 Mg Tab.chew 1 Tab PO BID PRN Ambien* (Zolpidem Tartrate) 10 Mg Tablet 1 Tab PO HS Omeprazole 20 Mg Capsule. 20 Mg PO BID Past Medical History Past Medical History s/p TAVR in 2022 Hyperlipidemia Nonobstructive coronary artery disease History of endometrial carcinoma s/p resection Anemia GERD Allergic rhinitis Past Surgical History Surgical History Comment TAVR Total knee replacements bilaterally Shoulder surgeries Hernia repair surgery Total abdominal hysterectomy Past Social History Social History Comment Patient lives by herself. Ambulates independently without assistance. Never smoker. Drinks alcohol very occasionally. Denies illicit drug abuse. PCP-Dr. Leal Floor Surfacer-Dr. Pierre Alcohol Use: None Drug Use: None Lives with: Spouse Lives In: Home ROS ROS Unable to obtain because of patient's condition Exam Vitals: Vital Signs Date Time Temp Pulse Resp B/P (MAP) Pulse Ox O2 Delivery O2 Flow Rate FiO2 02/24/25 18:08 97.8 90 24 153/83 (106) 98 0 General: Elderly female, alert and confused, hard of hearing, not in acute distress Head: Normocephalic with an atraumatic Eyes: Pupils- 3mm, reacting to light, conjunctiva- anicteric Nose and throat: No polyps, septum- normal, no mucosal ulcers, dry mucosal membranes Neck: Supple, no lymphadenopathy, no carotid bruit Respiratory: No use of accessory muscles of respiration, Bilateral normal vesicular breath sounds heard. No wheeze, rhochi or creps Cardiac: Tachycardia, S1-S2 heard, rhythm regular, no gallop/murmur Abdomen: non distended, no tenderness, no organomegaly, bowel sounds - heard Extremities: no clubbing, no pedal edema, no deformities, peripheral pulses - 2+ Skin: warm and dry, no rash, no purpura Neuro: No focal deficit, gross cranial nerve exam - normal Diagnostic Data Last Recorded Lab Results: 02/24/25 1425 02/24/25 1425 Diagnostic Data: Laboratory Tests Test 02/24/25 14:25 Prothrombin Time 10.8 SECONDS (9.0-12.0) INR International Normalized Ratio 1.1 INR Coagulation Comments Advance Care Planning Advanced Care plannin - 30 Minutes Additional Plan An 84-year-old female with past medical history of s/p TAVR, hyperlipidemia, GERD, was brought to the ED after she was found down by her neighbor at home. She is being admitted into the hospital for further evaluation and management. Plan: Failure to thrive Unwitnessed ground level fall Severe dehydration Anion gap metabolic acidosis likely secondary to uremia and lactic acid BUN is 99, creatinine 2.47, lactic acid 4.1, anion gap 19. TSH is within normal limits. Elevated creatinine kinase of 330, [place] [address]. Patient received 2 L of IV fluids in the ER. Ordered one more LR bolus and maintenance fluids LR at 150 mL/hour as the patient has hypernatremia. Repeat BMP and switch fluids to half NS if required for hypernatremia. CT head shows no acute intracranial abnormality. Chest x-ray shows no acute intra cardiopulmonary abnormality. Electrolyte abnormalities Hypernatremia, hypermagnesemia Sodium 151, magnesium 3.3. May likely correct with hydration. JACKSON likely secondary to vasomotor nephropathy Creatinine 2.47, GFR 19. Urea 99. Continue IV fluids. Type 2 PR History of nonobstructive CAD Troponins 135, continue trending troponins. Most likely secondary to demand ischemia. Trend troponins and start heparin if required. Urinary tract infection, simple cystitis Sepsis, unable to rule out Urinalysis positive for 5-10 WBC and 4+ bacteria. There is no leukocyte esterase or nitrites. Started her on ceftriaxone empirically. We will follow up with urine and blood cultures. Patient received one dose of Zosyn in the ER. History of s/p TAVR Follow up with proBNP and echocardiogram. Continue outpatient follow up with Dr. Pierre. Severe cervical stenosis and degeneration Ruled out cervical fracture CT cervical spine showed multilevel cervical degeneration along with severe stenosis. Continue outpatient follow up. Code Status: DNR/DNI DVT Prophylaxis: Heparin Analgesia/Sedation: Morphine, [place] Lines/Tubes: PIV GI Prophylaxis: Protonix Nutrition: NPO until speech therapy eval PT: Ordered Prognosis: Guarded Disposition: We will admit the patient to medical santizo. Continue aggressive IV fluid resuscitation, follow up with blood cultures. Nayana Morgan MD Internal Medicine Resident PGY-1 PT SEEN AND EXAMINED IN ER AGREE WITH ABOVE Date of Service: Feb 24, 2025 Billing Provider: JUAQUIN BURNS MD Common Visit Codes: [id number] INP/OBS CARE (HIGH) NAYANA MORGAN, RES Feb 24, 2025 18:26 JUAQUIN BURNS MD Feb 24, 2025 19:13
[2025-02-24 18:44] LABS: HEMOGLOBIN A1C 5.6 % (4.5-6.2)
[2025-02-24 18:49] LABS: PRO BRAIN NATRIURETIC PEPTIDE 2968 PG/ML (0-450)
[2025-02-24 19:00] LABS: ANION GAP 12 (8-16); BLOOD UREA NITROGEN 86 MG/DL (7-18); CALCIUM 8.4 MG/DL (8.5-10.1); CHLORIDE 115 MMOL/L (99-107); CREATININE 1.83 MG/DL (0.40-0.90); GLUCOSE 104 MG/DL (70-104); POTASSIUM 4.1 MMOL/L (3.5-5.1); SODIUM 153 MMOL/L (135-145); TOTAL CARBON DIOXIDE 25.6 MMOL/L (24-32); eCRCL 21 ML/MIN; eGFR 26 ML/MIN
[2025-02-24] MEDS: ringers solution, lacted 1,000 ML IV ONE (19:07)
[2025-02-24] MEDS: pantoprazole 40mg Tablet.DR PO SCH (19:08)
[2025-02-24] MEDS: K and/or MAG REPLACEMENT MC SCH (20:00)
[2025-02-24] MEDS: docusate sod 100mg capsule PO SCH (20:00)
[2025-02-24] MEDS: heparin, porcine 5000 units/ml vial SQ SCH (21:42)
[2025-02-24] MEDS: zolpidem 5mg tablet PO SCH (21:45)
[2025-02-24 22:00] VITALS: BP 111/57; PULSE 93; RESP 23; TEMP 97.6; O2SAT 93
[2025-02-24] MEDS: ringers solution, lacted 1,000 ML IV SCH (22:51)
[2025-02-24] MEDS: piperacillin/tazo 3.375gm/50ml 50 ML IV SCH (22:58)
[2025-02-24] MEDS: ipratropium 0.06% nasal spray 15ml NS SCH (23:18)
[2025-02-25] VITALS (8 sets, daily range): BP systolic 116–139; BP diastolic 49–77; PULSE 84–88; RESP 11–23; TEMP 97.6–98.2; O2SAT 95–99
[2025-02-25 06:21] LABS: BASOPHILS % (AUTO) 0.1 % (0-1); EOSINOPHILS % (AUTO) 0 % (0-6); HEMATOCRIT 41.4 % (35.0-45.0); HEMOGLOBIN 13.5 g/dl (12.0-16.0); LYMPHOCYTES # (AUTO) 1.4 X10'3 (1.1-4.8); MEAN CORPUSCULAR HEMOGLOBIN 30.1 PG (27.0-31.0); MEAN CORPUSCULAR HGB CONC 32.7 g/dL (33.0-36.5); MEAN CORPUSCULAR VOLUME 92.1 FL (78-98); MEAN PLATELET VOLUME 8.9 FL (7.4-10.4); MONOCYTES # (AUTO) 1.4 X10'3 (0-0.9); MONOCYTES % (AUTO) 10.4 % (2-12); NEUTROPHILS # (AUTO) 10.9 X10'3 (1.8-7.7); NEUTROPHILS % (AUTO) 79.5 % (42-75); PLATELET COUNT 175 X10'3 (140-440); RED BLOOD COUNT 4.49 X10'6 (4.20-5.60); RED CELL DISTRIBUTION WIDTH 14.5 % (11.5-14.5); WHITE BLOOD COUNT 13.7 X10'3 (4.5-11.0)
[2025-02-25 06:55] LABS: ALANINE AMINOTRANSFERASE 42 U/L (12-78); ALBUMIN 2.6 G/DL (3.4-5.0); ALBUMIN/GLOBULIN RATIO 0.9 (1.1-1.5); ALKALINE PHOSPHATASE 70 IU/L (46-116); ANION GAP 10 (8-16); ASPARTATE AMINO TRANSFERASE 46 U/L (10-37); BLOOD UREA NITROGEN 72 MG/DL (7-18); BUN/CREATININE RATIO 47.4 (10.0-20.0); CALCIUM 8.3 MG/DL (8.5-10.1); CHLORIDE 118 MMOL/L (99-107); CHOL/HDL RATIO 4.2 (0.00-4.99); CHOLESTEROL 159 MG/DL (0-200); CREATININE 1.52 MG/DL (0.40-0.90); GLUCOSE 91 MG/DL (70-104); HDL CHOLESTEROL 38 MG/DL (35-60); LDL CHOLESTEROL 87 MG/DL (50-100); MAGNESIUM 2.7 MG/DL (1.5-2.4); POTASSIUM 3.9 MMOL/L (3.5-5.1); SODIUM 151 MMOL/L (135-145); TOTAL CARBON DIOXIDE 23.1 MMOL/L (24-32); TOTAL PROTEIN 5.6 G/DL (6.4-8.2); TRIGLYCERIDES 185 MG/DL (20-135); eCRCL 26 ML/MIN; eGFR 33 ML/MIN
[2025-02-25] MEDS: sodium chloride 0.45% 1,000 ML IV SCH (08:04)
[2025-02-25] MEDS: CefTRIAXone/D5W-Rocephin 1gm 50 ML IV SCH (08:04)
[2025-02-25] MEDS: pantoprazole 40mg Tablet.DR PO SCH (08:10)
--- NOTE | 2025-02-25 15:56 | PROGRESS NOTE- Residence ---
Progress Note - Resident Providers to CC Resident Creating Document: NAYANA MORGAN, RES ~ Antibiotic Timeout Antibiotic Ordered?: Yes Subjective The patient was seen and examined at bedside today. She is very confused, hard of hearing and trying to get out of bed. Physical therapy worked with her and recommended post-acute care placement. Working with protective services case worker and sending referrals to all local SNFs. She is being resuscitated with fluids and clinically doing better. Objective Vital Signs Date Time Temp Pulse Resp B/P (MAP) Pulse Ox O2 Delivery O2 Flow Rate FiO2 02/25/25 06:00 98.2 88 19 125/49 (74) 99 Room Air 02/24/25 20:00 0.0 Result Diagram: 02/25/2533 02/25/25 05 Elderly female, alert and confused, hard of hearing, not in acute distress Head: Normocephalic with an atraumatic Eyes: Pupils- 3mm, reacting to light, conjunctiva- anicteric Nose and throat: No polyps, septum- normal, no mucosal ulcers, dry mucosal membranes Neck: Supple, no lymphadenopathy, no carotid bruit Respiratory: No use of accessory muscles of respiration, Bilateral normal vesicular breath sounds heard. No wheeze, rhochi or creps Cardiac: S1-S2 heard, rhythm regular, no gallop/murmur Abdomen: non distended, no tenderness, no organomegaly, bowel sounds - heard Extremities: no clubbing, no pedal edema, no deformities, peripheral pulses - 2+ Skin: warm and dry, no rash, no purpura Neuro: No focal deficit, gross cranial nerve exam - normal Coagulation Studies Laboratory Tests Test 02/24/25 14:25 Prothrombin Time 10.8 SECONDS (9.0-12.0) INR International Normalized Ratio 1.1 INR Coagulation Comments Assessment Assessment An 84-year-old female with past medical history of s/p TAVR, hyperlipidemia, GERD, was brought to the ED after she was found down by her neighbor at home. She is being admitted into the hospital for further evaluation and management. Plan Plan Failure to thrive Unwitnessed ground level fall Severe dehydration Advanced dementia Anion gap metabolic acidosis likely secondary to uremia and lactic acid, resolved Tachycardia resolved, leukocytosis trending down, anion gap closed, lactic acid normalized, creatinine and urea trending down. Continue IV fluids half-normal saline at 125 mL/hour. Patient worked with Physical therapy and they recommended placing the patient into rehab. [facility] referrals to all local rehabs. Electrolyte abnormalities Hypernatremia, hypermagnesemia Sodium 151, magnesium trending down. Started the patient on half-normal saline running at 125 mL/hour. Repeat BMP in the evening. JACKSON likely secondary to vasomotor nephropathy Kidney function getting better with IV fluids. Continue IV fluids. Type 2 NH History of nonobstructive CAD Troponins trending down. Most likely secondary to demand ischemia. Urinary tract infection, simple cystitis Sepsis, unable to rule out Urinalysis positive for 5-10 WBC and 4+ bacteria. There is no leukocyte esterase or nitrites. Urine cultures grew Gram-negative rods. Continue ceftriaxone. History of s/p TAVR ProBNP 2968. Follow up with the echocardiogram. Continue outpatient follow up with Dr. Pierre. Severe cervical stenosis and degeneration Ruled out cervical fracture CT cervical spine showed multilevel cervical degeneration along with severe stenosis. Continue outpatient follow up. Code Status: DNR/DNI DVT Prophylaxis: Heparin Analgesia/Sedation: Morphine, [place] Lines/Tubes: PIV GI Prophylaxis: Protonix Nutrition: Pureed food and nectar thick liquids PT: Post-acute care Prognosis: Guarded Disposition: Continue care in medical [facility]. Continue aggressive IV fluid resuscitation, follow up with blood and urine cultures. Nayana Morgan MD Internal Medicine Resident PGY-1 Seen and examined with resident at bedside agree with the above Date of Service: Feb 25, 2025 Billing Provider: JUAQUIN BURNS MD Common Visit Codes: [id number] INP/OBS CARE(HIGH) NAYANA MORGAN, RES Feb 25, 2025 15:56 JUAQUIN BURNS MD Feb 27, 2025 11:52
[2025-02-25 17:15] LABS: ALBUMIN 2.9 G/DL (3.4-5.0); ANION GAP 11 (8-16); BLOOD UREA NITROGEN 60 MG/DL (7-18); BUN/CREATININE RATIO 44.8 (10.0-20.0); CALCIUM 8.5 MG/DL (8.5-10.1); CHLORIDE 116 MMOL/L (99-107); CREATININE 1.34 MG/DL (0.40-0.90); GLUCOSE 96 MG/DL (70-104); POTASSIUM 3.7 MMOL/L (3.5-5.1); SODIUM 153 MMOL/L (135-145); TOTAL CARBON DIOXIDE 25.6 MMOL/L (24-32); eCRCL 29 ML/MIN; eGFR 38 ML/MIN
[2025-02-26] VITALS (7 sets, daily range): BP systolic 114–129; BP diastolic 47–63; PULSE 70–81; RESP 12–20; TEMP 97.3–98.2; O2SAT 92–100
[2025-02-26 05:42] LABS: BASOPHILS % (AUTO) 0.1 % (0-1); EOSINOPHILS # (AUTO) 0.1 X10'3 (0-0.9); EOSINOPHILS % (AUTO) 0.8 % (0-6); HEMATOCRIT 38.5 % (35.0-45.0); HEMOGLOBIN 12.7 g/dl (12.0-16.0); LYMPHOCYTES # (AUTO) 1.7 X10'3 (1.1-4.8); LYMPHOCYTES % (AUTO) 17.3 % (21-51); MEAN CORPUSCULAR HEMOGLOBIN 30.8 PG (27.0-31.0); MEAN CORPUSCULAR HGB CONC 33.1 g/dL (33.0-36.5); MEAN PLATELET VOLUME 8.4 FL (7.4-10.4); MONOCYTES # (AUTO) 1.1 X10'3 (0-0.9); MONOCYTES % (AUTO) 11.5 % (2-12); NEUTROPHILS # (AUTO) 6.9 X10'3 (1.8-7.7); NEUTROPHILS % (AUTO) 70.3 % (42-75); PLATELET COUNT 149 X10'3 (140-440); RED BLOOD COUNT 4.14 X10'6 (4.20-5.60); RED CELL DISTRIBUTION WIDTH 14.7 % (11.5-14.5); WHITE BLOOD COUNT 9.8 X10'3 (4.5-11.0)
[2025-02-26 06:01] LABS: ALANINE AMINOTRANSFERASE 48 U/L (12-78); ALBUMIN 2.5 G/DL (3.4-5.0); ALBUMIN/GLOBULIN RATIO 0.9 (1.1-1.5); ALKALINE PHOSPHATASE 66 IU/L (46-116); ANION GAP 9 (8-16); ASPARTATE AMINO TRANSFERASE 42 U/L (10-37); BILIRUBIN,TOTAL 0.6 MG/DL (0.1-1.0); BLOOD UREA NITROGEN 46 MG/DL (7-18); BUN/CREATININE RATIO 36.8 (10.0-20.0); CALCIUM 8.1 MG/DL (8.5-10.1); CHLORIDE 117 MMOL/L (99-107); CREATININE 1.25 MG/DL (0.40-0.90); GLUCOSE 87 MG/DL (70-104); MAGNESIUM 2.5 MG/DL (1.5-2.4); POTASSIUM 3.6 MMOL/L (3.5-5.1); SODIUM 151 MMOL/L (135-145); TOTAL CARBON DIOXIDE 25.3 MMOL/L (24-32); TOTAL PROTEIN 5.3 G/DL (6.4-8.2); eCRCL 31 ML/MIN; eGFR 41 ML/MIN
[2025-02-26] MEDS: atorvastatin 20mg tablet PO SCH (07:46)
--- NOTE | 2025-02-26 12:00 | PROGRESS NOTE- Residence ---
Progress Note - Resident Providers to CC Resident Creating Document: NAYANA MORGAN, RES ~ Antibiotic Timeout Antibiotic Ordered?: Yes Subjective The patient was seen and examined at bedside today. She is clinically doing better, kidney function is getting better. She is still confused and demented. She has a hypernatremia, giving her 1 L of bolus for fluid resuscitation. Switching her fluids from half NS to ringer lactate. Objective Vital Signs Date Time Temp Pulse Resp B/P (MAP) Pulse Ox O2 Delivery O2 Flow Rate FiO2 02/26/25 06:00 58 02/26/25 06:00 97.3 19 114/50 (71) 97 Room Air 02/25/25 20:00 0.0 Result Diagram: 02/26/25 0506 02/26/25 0513 Elderly female, alert and confused, hard of hearing, not in acute distress, multiple bruises in various stages of healing on her back Head: Normocephalic with an atraumatic Eyes: Pupils- 3mm, reacting to light, conjunctiva- anicteric Nose and throat: No polyps, septum- normal, no mucosal ulcers, dry mucosal membranes Neck: Supple, no lymphadenopathy, no carotid bruit Respiratory: No use of accessory muscles of respiration, Bilateral normal vesicular breath sounds heard. No wheeze, rhochi or creps Cardiac: S1-S2 heard, rhythm regular, no gallop/murmur Abdomen: non distended, no tenderness, no organomegaly, bowel sounds - heard Extremities: no clubbing, no pedal edema, no deformities, peripheral pulses - 2+ Skin: warm and dry, no rash, no purpura Neuro: No focal deficit, gross cranial nerve exam - normal Coagulation Studies Laboratory Tests Test 02/24/25 14:25 Prothrombin Time 10.8 SECONDS (9.0-12.0) INR International Normalized Ratio 1.1 INR Coagulation Comments Assessment Assessment An 84-year-old female with past medical history of s/p TAVR, hyperlipidemia, GERD, was brought to the ED after she was found down by her neighbor at home. She is being admitted into the hospital for further evaluation and management. Plan Plan Failure to thrive Unwitnessed ground level fall Severe dehydration Advanced dementia Anion gap metabolic acidosis likely secondary to uremia and lactic acid, resolved Tachycardia resolved, leukocytosis trending down, anion gap closed, lactic acid normalized, creatinine and urea trending down. Discontinue half-normal saline. 1 L of NS bolus. Start the patient on 150 mL/hour ringer lactate. Patient worked with Physical therapy and they recommended placing the patient into rehab. Electrolyte abnormalities Hypernatremia, hypermagnesemia Sodium 151, magnesium trending down. Started the patient on ringer lactate at 150 mL/hour. Repeat BMP in the evening. JACKSON likely secondary to vasomotor nephropathy Kidney function getting better with IV fluids. Continue IV fluids. Type 2 NH History of nonobstructive CAD Troponins trending down. Most likely secondary to demand ischemia. Urinary tract infection, simple cystitis Sepsis, unable to rule out Urinalysis positive for 5-10 WBC and 4+ bacteria. There is no leukocyte esterase or nitrites. Urine cultures grew Klebsiella sensitive to ceftriaxone. Continue ceftriaxone. Acute urinary retention Patient required straight cath last night for urinary retention of more than [address] a Scanlon's catheter if she is still retaining. Patient will go to rehab with [facility]. History of s/p TAVR ProBNP 2968. Follow up with the echocardiogram. Continue outpatient follow up with Dr. Pierre. Severe cervical stenosis and degeneration Ruled out cervical fracture CT cervical spine showed multilevel cervical degeneration along with severe stenosis. Continue outpatient follow up. Code Status: DNR/DNI DVT Prophylaxis: Heparin Analgesia/Sedation: Morphine, [place] Lines/Tubes: PIV GI Prophylaxis: Protonix Nutrition: Pureed food and nectar thick liquids PT: Post-acute care Prognosis: Guarded Disposition: Continue care in medical [facility]. Continue aggressive IV fluid resuscitation, follow up with blood and urine cultures. Monitor sodium. Anticipate discharge in the next 24 hours. Nayana Morgan MD Internal Medicine Resident PGY-1 Date of Service: Feb 26, 2025 Billing Provider: JUAQUIN BURNS MD Common Visit Codes: [id number] INP/OBS CARE(HIGH) NAYANA MORGAN, RES Feb 26, 2025 12:00 JUAQUIN BURNS MD Feb 27, 2025 12:00
--- NOTE | 2025-02-26 12:14 | RADIOLOGY REPORT ---
[facility] EXAMINATION: DI RIBS,BILAT 3VW MIN INDICATION: extensive bruising COMPARISON: None TECHNIQUE: Frontal view of the chest and 4 views of the right ribs history FINDINGS: No focal consolidation, pleural effusion or significant pneumothorax. Normal cardiomediastinal silhou ette. No displaced right rib fracture. right shoulder artrhoplasty. IMPRESSION: No acute cardiopulmonary disease. No displaced right rib fracture.
[2025-02-26] MEDS: normal saline 1000ml 1,000 ML IV ONE (13:08)
[2025-02-26] MEDS: ringers solution, lacted 1,000 ML IV SCH (13:08)
[2025-02-26] MEDS: LidoCAINE 2% Topical Jelly 11mL syringe (UROJET) TOP ONE (13:25)
[2025-02-26] MEDS: magnesium hydroxide 30ml (MOM) UD suspension PO PRN (18:11)
[2025-02-27 02:00] VITALS: BP 103/74; PULSE 62; RESP 18; TEMP 97.6; O2SAT 99
[2025-02-27 05:28] LABS: BASOPHILS % (AUTO) 0 % (0-1); EOSINOPHILS # (AUTO) 0.2 X10'3 (0-0.9); EOSINOPHILS % (AUTO) 2.6 % (0-6); HEMATOCRIT 36.9 % (35.0-45.0); HEMOGLOBIN 11.8 g/dl (12.0-16.0); LYMPHOCYTES # (AUTO) 1.6 X10'3 (1.1-4.8); MEAN CORPUSCULAR HEMOGLOBIN 30.7 PG (27.0-31.0); MEAN CORPUSCULAR HGB CONC 32.1 g/dL (33.0-36.5); MEAN CORPUSCULAR VOLUME 95.5 FL (78-98); MEAN PLATELET VOLUME 8.3 FL (7.4-10.4); MONOCYTES # (AUTO) 0.9 X10'3 (0-0.9); MONOCYTES % (AUTO) 9.6 % (2-12); NEUTROPHILS # (AUTO) 6.4 X10'3 (1.8-7.7); NEUTROPHILS % (AUTO) 69.8 % (42-75); PLATELET COUNT 117 X10'3 (140-440); RED BLOOD COUNT 3.86 X10'6 (4.20-5.60); RED CELL DISTRIBUTION WIDTH 15.2 % (11.5-14.5); WHITE BLOOD COUNT 9.2 X10'3 (4.5-11.0)
[2025-02-27 05:57] LABS: ALANINE AMINOTRANSFERASE 48 U/L (12-78); ALBUMIN 2.2 G/DL (3.4-5.0); ALBUMIN/GLOBULIN RATIO 0.9 (1.1-1.5); ALKALINE PHOSPHATASE 58 IU/L (46-116); ANION GAP 8 (8-16); ASPARTATE AMINO TRANSFERASE 43 U/L (10-37); BILIRUBIN,TOTAL 0.5 MG/DL (0.1-1.0); BLOOD UREA NITROGEN 25 MG/DL (7-18); BUN/CREATININE RATIO 28.1 (10.0-20.0); CALCIUM 7.9 MG/DL (8.5-10.1); CHLORIDE 113 MMOL/L (99-107); CREATININE 0.89 MG/DL (0.40-0.90); GLUCOSE 88 MG/DL (70-104); POTASSIUM 3.9 MMOL/L (3.5-5.1); SODIUM 145 MMOL/L (135-145); TOTAL CARBON DIOXIDE 24.5 MMOL/L (24-32); TOTAL PROTEIN 4.7 G/DL (6.4-8.2); eCRCL 44 ML/MIN; eGFR 61 ML/MIN
[2025-02-27 07:02] VITALS: BP 101/49; PULSE 63; RESP 18; TEMP 97.6; O2SAT 98
[2025-02-27 08:00] VITALS: RESP 16; O2SAT 99
[2025-02-27 08:53] LABS: PLATELET ESTIMATE DECREASED; TOTAL CELLS COUNTED 100
[2025-02-27 12:00] VITALS: BP 100/40; PULSE 73; RESP 18; TEMP 97.6; O2SAT 98
--- NOTE | 2025-02-27 15:01 | DISCHARGE SUMMARY-Residence ---
Discharge Summary Providers to CC Resident Creating Document: KAMILLE MORGAN, RES ~ Discharge Summary Admission Diagnosis: Severe dehydration Hospital Course DATE OF ADMISSION: 02/24/2025 DATE OF DISCHARGE: 02/27/2025 Imaging: Cervical spine CT 02/24/2025: Multiple foci of gas in the left internal jugular vein and its more distal tributaries are visualized is nonspecific and incompletely evaluated with contrast. No cervical spine fracture or subluxation. Multi level degenerative changes of the cervical spine worst at level C5-C6 with moderate central canal narrowing and severe bilateral neuroforaminal narrowing. CT head 02/24/2025: No acute intracranial abnormality. X-ray chest 02/24/2025: No acute cardiopulmonary disease. X-ray ribs 02/26/2025: No acute fractures. Right shoulder arthroplasty. Discharge Diagnosis\Comment: Failure to thrive Unwitnessed ground level fall Severe dehydration Advanced dementia Anion gap metabolic acidosis likely secondary to uremia and lactic acid, resolved Electrolyte abnormalities Hypernatremia, hypermagnesemia [place]ACK[place] likely secondary to vasomotor nephropathy Type 2 HI History of nonobstructive CAD Urinary tract infection, simple cystitis Sepsis, ruled out Acute urinary retention History of s/p TAVR Severe cervical stenosis and degeneration Ruled out cervical fracture Operations\Procedures: None Consultants: None Complications: None Condition on DC: Stable Discharge Summary: The patient is an 84-year-old female with past medical history of aortic stenosis, GERD, was brought to the ED after she was found down by her neighbor in her house. Patient is confused, hard of hearing and has advanced dementia. Unable to give any history. History is obtained from a lady named Helena who is her POA. She is the daughter of the patient's intermediate project manager partner. As reported by her, the patient lives at home by herself, unable to take care of herself. She usually has a routine where she goes to [employer] for breakfast and lunch. Her car broke down 10 days ago and she was unable to get around. Since there was a disturbance in her routine, she was unable to eat anything even though there was food at home. Helena last saw her on Tuesday. Last known normal by her neighbor was on Tuesday. This afternoon, patient's neighbor went in her home to check on her and she was found down with evidence of multiple vomiting puddles on the floor. She was able to get up and get to the ambulance with a lot of help. Course in the hospital: In the ED, BUN was 99, creatinine 2.47, lactic acid 4.1, anion gap 19, sodium 151, magnesium 3.3, WBC 20.2, hemoglobin 17.9. The patient was severely dehydrated and she was resuscitated with IV fluids 3 L boluses and continued at 150 mL/hour. Urinalysis was positive for 5-10 WBC and 4+ bacteria. Urine cultures grew Klebsiella, pansensitive. She was started on IV ceftriaxone and received it for three days. Over the next two days, all her labs came back to near normal range. She worked with Physical therapy and they recommended placing her in a rehab facility. On the day of discharge, the patient was stable and had no new complaints. She was discharged to [facility] rehab facility. New discharge medication: Ciprofloxacin 500 mg b.i.d. for five days Culturelle 10 m b.i.d. for two months Atorvastatin 20 mg once daily Advice at discharge: Follow up with PCP in one week. Ensure adequate hydration. Continue antibiotic ciprofloxacin for five more days for urinary tract infection. Bowel and bladder care. Aspiration and fall precautions. Consider Neurology consultation for advanced dementia. Continue Scanlon's catheter and follow up with a urologist. Examination at discharge: Elderly female, alert and confused, hard of hearing, not in acute distress, multiple bruises in various stages of healing on her back Head: Normocephalic with an atraumatic Eyes: Pupils- 3mm, reacting to light, conjunctiva- anicteric Nose and throat: No polyps, septum- normal, no mucosal ulcers, moist mucosal membranes Neck: Supple, no lymphadenopathy, no carotid bruit Respiratory: No use of accessory muscles of respiration, Bilateral normal vesicular breath sounds heard. No wheeze, rhochi or creps Cardiac: S1-S2 heard, rhythm regular, no gallop/murmur Abdomen: non distended, no tenderness, no organomegaly, bowel sounds - heard Extremities: no clubbing, no pedal edema, no deformities, peripheral pulses - 2+ Skin: warm and dry, no rash, no purpura Neuro: No focal deficit, gross cranial nerve exam - normal Vital Signs Date Time Temp Pulse Resp B/P (MAP) Pulse Ox O2 Delivery O2 Flow Rate FiO2 02/27/25 12:00 97.6 73 18 100/40 (60) 98 Room Air 02/25/25 20:00 0.0 Laboratory Tests Test 02/26/25 05:06 02/26/25 05:13 02/27/25 05:00 White Blood Count 9.8 X10'3 9.2 X10'3 Red Blood Count 4.14 X10'6 3.86 X10'6 Hemoglobin 12.7 g/dl 11.8 g/dl Hematocrit 38.5 % 36.9 % Mean Corpuscular Volume 93.0 FL 95.5 FL Mean Corpuscular Hemoglobin 30.8 PG 30.7 PG Mean Corpuscular Hemoglobin Concent 33.1 g/dL 32.1 g/dL Red Cell Distribution Width 14.7 % 15.2 % Platelet Count 149 X10'3 117 X10'3 Mean Platelet Volume 8.4 FL 8.3 FL Neutrophils (%) (Auto) 70.3 % 69.8 % Lymphocytes (%) (Auto) 17.3 % 18.0 % Monocytes (%) (Auto) 11.5 % 9.6 % Eosinophils (%) (Auto) 0.8 % 2.6 % Basophils (%) (Auto) 0.1 % 0 % Neutrophils # (Auto) 6.9 X10'3 6.4 X10'3 Lymphocytes # (Auto) 1.7 X10'3 1.6 X10'3 Monocytes # (Auto) 1.1 X10'3 0.9 X10'3 Eosinophils # (Auto) 0.1 X10'3 0.2 X10'3 Basophils # (Auto) 0.0 X10'3 0.0 X10'3 CBC Comment Sodium Level 151 MMOL/L 145 MMOL/L Potassium Level 3.6 MMOL/L 3.9 MMOL/L Chloride Level 117 MMOL/L 113 MMOL/L Carbon Dioxide Level 25.3 MMOL/L 24.5 MMOL/L Anion Gap 9 8 Blood Urea Nitrogen 46 MG/DL 25 MG/DL Creatinine 1.25 MG/DL 0.89 MG/DL Estimated GFR/1.73 m2 41 ML/MIN 61 ML/MIN BUN/Creatinine Ratio 36.8 28.1 Glucose Level 87 MG/DL 88 MG/DL Calcium Level 8.1 MG/DL 7.9 MG/DL Magnesium Level 2.5 MG/DL 2.0 MG/DL Total Bilirubin 0.6 MG/DL 0.5 MG/DL Aspartate Amino Transf (AST/SGOT) 42 U/L 43 U/L Alanine Aminotransferase (ALT/SGPT) 48 U/L 48 U/L Alkaline Phosphatase 66 IU/L 58 IU/L Total Protein 5.3 G/DL 4.7 G/DL Albumin 2.5 G/DL 2.2 G/DL Globulin 2.8 G/DL 2.5 G/DL Albumin/Globulin Ratio 0.9 0.9 Chemistry Comments Differential Total Cells Counted 100 Neutrophils % (Manual) 78.0 % Band Neutrophils % 2.0 % Lymphocytes % (Manual) 14.0 % Monocytes % (Manual) 4.0 % Eosinophils % (Manual) 1.0 % Metamyelocytes % 1.0 % Platelet Estimate Decreased Red Blood Cell Morphology Perf Basophilic Stippling Macrocytosis 1+ *Problems/Diagnosis: (1) Severe dehydration Total Time Spent on D/C: > 30 Minutes Date of Service: Feb 27, 2025 Billing Provider: JUAQUIN BURNS MD, SOWMYA MANJARI, RES Feb 27, 2025 15:01
== END 2025-02-27 16:08 | DRG 682 ==
LOC: ER 13:31 → ED HOLD 17:13 → PCU 3S 19:35
PROVIDERS: ADMIT Internal Medicine; ATTEND Internal Medicine
DX: N17.0 Acute kidney failure with tubular necrosis (principal); I21.A1 Myocardial infarction type 2; N30.00 Acute cystitis without hematuria; E87.0 Hyperosmolality and hypernatremia; Z66 Do not resuscitate; R62.7 Adult failure to thrive; E86.0 Dehydration; E83.41 Hypermagnesemia; F03.A0 Unspecified dementia, mild, without behavioral disturbance, psychotic disturbance, mood disturbance, and anxiety; M48.02 Spinal stenosis, cervical region; I25.10 Atherosclerotic heart disease of native coronary artery without angina pectoris; Z96.653 Presence of artificial knee joint, bilateral; K21.9 Gastro-esophageal reflux disease without esophagitis; Z68.22 Body mass index [BMI] 22.0-22.9, adult; Z88.8 Allergy status to other drugs, medicaments and biological substances; Z88.5 Allergy status to narcotic agent; Z79.899 Other long term (current) drug therapy; Z79.82 Long term (current) use of aspirin; Z95.2 Presence of prosthetic heart valve; Z90.710 Acquired absence of both cervix and uterus
CPT/HCPCS: 36415; 70450; 71045; 71110; 72125; 80048; 80053; 80061; 80305; 80320; 81001; 82140; 82550; 83036; 83605; 83735; 83880; 84145; 84443; 84484; 85007; 85025; 85610; 87040; 87077; 87081; 87088; 87186; 92508; 92616; 93005; 96360; 97110; 97161; 97530; 97535; 99285; A4314; C1758; G0378; J0696; J1644; J2543; J3490; J7030; J7040; J7120; J7121